=== PATIENT | male | born 1980 | race Hispanic/Latino ===

== ENCOUNTER 2020-03-19 18:04 | Emergency (ER) | payer OTHER, SELFPAY ==
[2020-03-19] VITALS (11 sets, daily range): BP systolic 147–178; BP diastolic 85–108; PULSE 58–75; RESP 15–28; TEMP 37.1; O2SAT 95–100
--- NOTE | ~2020-03-19 | XR_ITS ---
XR chest 2V DATE: 03/19/2020 18:26 INDICATION: Chest pain radiating to left arm. Shortness of breath for 5 days. TECHNIQUE: PA and lateral views COMPARISON: 02/07/2015 2 view chest 01/24/2015 CT pulmonary scan FINDINGS: Normal heart size. No hilar or mediastinal enlargement. No pulmonary infiltrate or consolidation, pleural effusion or pulmonary vascular congestion or pneumo thorax. Included skeletal structures are unremarkable. IMPRESSION: No active cardiopulmonary disease Reviewed, dictated and finalized at location A. SLUDGE KILN OPERATOR
--- NOTE | 2020-03-19 18:09 | ECG_ITS ---
Measurements Intervals [place] Rate: 76 P: 41 CO: 193 QRS: 40 QRSD: 105 T: 11 QT: 378 QTc: 425 Interpretive Statements SINUS RHYTHM MINIMAL Q WAVES- HIGH LATERAL LEADS BORDERLINE ST-T WAVE ABNORMALITY- INFERIOR LEADS BASELINE ARTIFACT- II, AVF BORDERLINE ECG Electronically Signed On 03-19-2020 18:49:28 KEY ACCOUNT EXECUTIVE by Arik Benavides D.O.
[2020-03-19 18:21] LABS: Basophils Percent Auto 0.4 % (0.2-1.2); Eosinophils Absolute Auto 0.3 K/mm3 (0-0.3); Eosinophils Percent Auto 3.8 % (0-4.4); Hematocrit 44.9 % (42.0-52.0); Hemoglobin 15.2 g/dL (14.0-18.0); Immature Granulocyte Absolute 0.02 K/mm3 (0.00-0.031); Immature Granulocyte Percent A 0.3 % (0-0.5); Lymphocytes Percent Auto 29.5 % (18.3-44.2); Mean Corpuscular HGB Conc 33.9 g/dl (32-36); Mean Corpuscular Hemoglobin 30.6 pg (26-34); Mean Corpuscular Volume 90.5 fl (80-100); Mean Platelet Volume 9.4 fl (7.4-10.4); Monocytes Absolute Auto 0.7 K/mm3 (0.1-0.6); Monocytes Percent Auto 8.3 % (2.6-8.5); Neutrophils Absolute Auto 4.5 K/mm3 (1.3-6.7); Neutrophils Percent Auto 57.7 % (45.5-73.1); Platelet Count Result 255 k/mm3 (150-375); Red Blood Count 4.96 M/mm3 (4.6-6.20); Red Cell Distribution Width 12.3 % (11.5-14.5); White Blood Count 7.8 K/mm3 (4.5-10.0)
[2020-03-19 18:32] LABS: Anion Gap 6 mmol/L (8-16); Blood Urea Nitrogen 14 mg/dL (9-20); Calcium 9.2 mg/dL (8.4-10.2); Carbon Dioxide 29 mmol/L (22-30); Chloride 100 mmol/L (98-107); Estimated CRCL calculation 136 ml/min; Estimated Glomerular Filt Rate > 60; Glucose 158 mg/dL (75-110); Potassium 3.8 mmol/L (3.4-5.0); Sodium 135 mmol/L (137-145)
[2020-03-19 18:36] LABS: Prothrombin Time 13.5 Seconds (11.1-14.7)
[2020-03-19 18:44] LABS: Troponin I < 0.012 ng/mL (0.000-0.034)
--- NOTE | 2020-03-19 20:14 | ED.GENADULT ---
HPI - General Adult General Chief complaint: Chest Pain Stated complaint: chest pain Time Seen by Provider: 03/19/20 18:09 History of Present Illness HPI narrative: Patient is a 39-year-old male who presents to the ER with some chest pain. Ongoing for a couple of weeks and was occurring occasionally. It has not occurred every day for the last 5 days. Symptoms always occur in the evening at night when he is sitting or laying down. Is typically after he has eaten. He gets some discomfort in the center of his chest that does not radiate to the shoulder or arm. He will then get a funny feeling within his throat. No nausea or vomiting. He says the pain will last for about an hour and will make him somewhat short of breath. No lower extremity swelling. He said no runny nose/sore throat/productive cough. No exertional dyspnea or chest pain. No family history of coronary disease. Patient has a PCP that he follows with. Related Data Allergies Allergy/AdvReac Type Severity Reaction Status Date / Time No Known Allergies Allergy Verified 02/22/15 13:51 Review of Systems Review of Systems: All systems reviewed & are unremarkable except as noted in HPI and below Constitutional: Constitutional: Denies chills, Denies fever(s) and Denies weakness ENT: Denies nasal congestion and Denies sore throat Cardiovascular: Cardiovascular: Reports chest pain, Denies rapid heart rate and Denies radiating jaw, neck or arm pain Respiratory: Respiratory: Denies cough, Reports dyspnea and Denies wheezing Gastrointestinal: Gastrointestinal: Denies abdominal pain, Denies heartburn, Denies nausea and Denies vomiting Musculoskeletal: Musculoskeletal: Denies muscle cramps PMFSH Past Medical History Medical History (Updated 03/19/20 @ 20:20 by Benny Jacobs MD) Healthy adult male Surgical History Surgical History (Updated 03/19/20 @ 20:17 by Benny Jacobs MD) No pertinent past surgical history Social History Social History (Updated 03/19/20 @ 20:17 by Benny Jacobs MD) Social History: Rare tobacco use Exam Narrative: Exam Narrative: GENERAL: Well-appearing, well-nourished, and in no acute distress. HEAD: Normocephalic, atraumatic. CHEST: Clear to auscultation. No respiratory distress. HEART: Regular rate and rhythm. No murmur heard. Normal peripheral pulses. ABDOMEN: Soft, nontender, nondistended. EXTREMITIES: Normal range of motion. No edema. SKIN: Warm, dry, no rash. NEURO: Alert and oriented x3. PSYCH: Normal mood and affect. Course Course Emergency Course: Symptoms seem most likely be related to reflux given the fact that only occurs in the evening when laying down. Will start on famotidine. Recommend that patient follow-up with PCP after his treatment to discuss whether he needs either a GI referral or a stress test. Patient verbalized understanding. Vital Signs Vital signs: Vital Signs Temperature 98.7 F 03/19/20 18:07 Pulse Rate 75 03/19/20 18:07 Respiratory Rate 20 03/19/20 18:07 Blood Pressure 178/108 H 03/19/20 18:07 Pulse Oximetry 99 03/19/20 18:07 Temperature 98.7 F 03/19/20 18:07 Pulse Rate 67 03/19/20 18:16 Respiratory Rate 19 03/19/20 18:16 Blood Pressure 157/100 H 03/19/20 18:16 Pulse Oximetry 98 03/19/20 18:16 Medical Decision Making Vital Signs Vital Signs: Vital Signs Temperature 98.7 F 03/19/20 18:07 Pulse Rate 75 03/19/20 18:07 Respiratory Rate 20 03/19/20 18:07 Blood Pressure 178/108 H 03/19/20 18:07 Pulse Oximetry 99 03/19/20 18:07 Temperature 98.7 F 03/19/20 18:07 Pulse Rate 67 03/19/20 18:16 Respiratory Rate 19 03/19/20 18:16 Blood Pressure 157/100 H 03/19/20 18:16 Pulse Oximetry 98 03/19/20 18:16 Lab Data Result diagrams: 03/19/20 18:12 03/19/20 18:12 Labs: Lab Results 03/19/20 03/19/20 03/19/20 Range/Units 18:12 18:12 18:12 WBC 7.8 (4.5-10.0) K/mm3
== END 2020-03-19 20:34 | disposition home or self-care (01) ==
PROVIDERS: Emergency Provider Emergency Medicine; Family Provider Internal Medicine; PCP Internal Medicine
DX: R07.89 Other chest pain (principal); K21.9 Gastro-esophageal reflux disease without esophagitis; R94.31 Abnormal electrocardiogram [ECG] [EKG]
CPT/HCPCS: 36415; 71046; 80048; 84484; 85025; 85610; 85730; 93005; 99284

== ENCOUNTER 2020-11-29 13:01 | Emergency (ER) | payer OTHER, SELFPAY ==
--- NOTE | ~2020-11-29 | XR_ITS ---
XR chest 1V portable DATE: 11/29/2020 13:32 INDICATION: Chest pain, left facial and arm numbness TECHNIQUE: Portable upright AP chest on 11/29/2020 at 1329 hours COMPARISON: 03/19/2020 PA and lateral chest FINDINGS: Cardiac and mediastinal silhouettes are unremarkable. No pulmonary infiltrate or consolidat ion, pleural effusion or pulmonary vascular congestion or pneumothorax. IMPRESSION: No active disease Reviewed, dictated and finalized at location A. IMPRESSION: No active disease
--- NOTE | 2020-11-29 13:08 | ECG_ITS ---
Measurements Intervals [place] Rate: 76 P: 26 TN: 180 QRS: 18 QRSD: 91 T: -16 QT: 390 QTc: 439 Interpretive Statements SINUS RHYTHM MINIMAL Q WAVES- HIGH LATERAL LEADS BORDERLINE ST-T WAVE ABNORMALITY- INFERIOR LEADS BORDERLINE ECG Electronically Signed On 11-29-2020 18:16:57 CDT by Arik Benavides D.O.
[2020-11-29] MEDS: SODIUM CHLORIDE 0.9% IV 1,000 ML 999 ML IV CONT (13:45)
[2020-11-29] MEDS: ONDANSETRON INJ 4 MG/2 ML VIAL IV PUSH (13:45)
[2020-11-29 13:46] LABS: Basophils Percent Auto 0.4 % (0.2-1.2); Eosinophils Absolute Auto 0.3 K/mm3 (0-0.3); Eosinophils Percent Auto 4.2 % (0-4.4); Hematocrit 43.5 % (42.0-52.0); Hemoglobin 14.4 g/dL (14.0-18.0); Immature Granulocyte Absolute 0.04 K/mm3 (0.00-0.031); Immature Granulocyte Percent A 0.6 % (0-0.5); Lymphocytes Absolute Auto 2.65 K/mm3 (0.9-3.2); Lymphocytes Percent Auto 37.4 % (18.3-44.2); Mean Corpuscular HGB Conc 33.1 g/dl (32-36); Mean Corpuscular Hemoglobin 30.9 pg (26-34); Mean Corpuscular Volume 93.3 fl (80-100); Mean Platelet Volume 9.3 fl (7.4-10.4); Monocytes Absolute Auto 0.6 K/mm3 (0.1-0.6); Monocytes Percent Auto 8.7 % (2.6-8.5); Neutrophils Absolute Auto 3.5 K/mm3 (1.3-6.7); Neutrophils Percent Auto 48.7 % (45.5-73.1); Platelet Count Result 262 k/mm3 (150-375); Red Blood Count 4.66 M/mm3 (4.6-6.20); Red Cell Distribution Width 13.1 % (11.5-14.5); White Blood Count 7.1 K/mm3 (4.5-10.0)
[2020-11-29] MEDS: FAMOTIDINE 20 MG/2 ML VIAL IV PUSH (13:46)
[2020-11-29 13:57] LABS: Alanine Aminotransferase 73 U/L (4-50); Albumin Level 4.9 g/dL (3.5-5.1); Alkaline Phosphatase 109 U/L (38-126); Anion Gap 10 mmol/L (8-16); Aspartate Amino Transferase 44 U/L (17-59); Bilirubin,Total 0.4 mg/dL (0.2-1.3); Blood Urea Nitrogen 13 mg/dL (9-20); Calcium 9.1 mg/dL (8.4-10.2); Carbon Dioxide 24 mmol/L (22-30); Chloride 105 mmol/L (98-107); Estimated CRCL calculation 140 ml/min; Estimated Glomerular Filt Rate > 60; Glucose 165 mg/dL (65-110); Lipase 101 U/L (23-300); Potassium 4.1 mmol/L (3.4-5.0); Sodium 139 mmol/L (137-145)
[2020-11-29 14:08] LABS: Troponin I < 0.012 ng/mL (0.000-0.034)
--- NOTE | 2020-11-29 14:53 | ED.CHESTPAIN ---
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 Patient then developed shortness of breath and numbness in LUE and LLE per patient,none now. states patient became very anxious and started breathing heavily. Chest pain worse with nothing, improved with nothing. No previous history of same. No fever, no cough, no vomiting, does have some nausea, no shortness of breath currently. No leg swelling, no recent travel or surgeries. No family history of CAD before age 509. Patient states no tobacco or cocaine use, no HTN, no DM and no elevated cholesterol. MD complaint: chest pain and chest discomfort Timing of current episode: constant Prior episodes: No Onset: after eating Pain radiation: none Quality: sharp Relieving factors: nothing Exacerbating factors: eating Associated symptoms: nausea, diaphoresis and palpitations Risk Factors Coronary artery disease risk factors: none Thoracic aortic dissection risk factors: none Related Data Allergies Allergy/AdvReac Type Severity Reaction Status Date / Time No Known Allergies Allergy Verified 11/29/20 13:53 Review of Systems Review of Systems: All systems reviewed & are unremarkable except as noted in HPI and below (HPI and below) Constitutional: Comments: no fever, no fatigue Neurologic: Denies confusion, Denies vertigo, Denies dizziness, Denies syncope, Denies headache(s), Reports numbness and Denies weakness Psychiatric: Psychiatric: Reports anxiety Comments: no SI/ no HI Allergic/Immunologic: Comments: no throat swelling, no rashes , PMFSH Past Medical History Medical History (Updated 11/30/20 @ 00:01 by Telma Batista) Healthy adult male Surgical History Surgical History (Updated 03/19/20 @ 20:17 by Benny Jacobs MD) No pertinent past surgical history Social History Social History (Updated 03/19/20 @ 20:17 by Benny Jacobs MD) Social History: Rare tobacco use Exam Const: Other: anxious, afebrile, answering all questions appropriately HENMT: Mouth: Yes moist mucous membranes Throat: posterior oropharynx normal and uvula midline Eyes: Conjunctivae: conjunctivae normal Pupils: Equal, round and reactive pupils present Neck: Neck: meningismus present and no lymphadenopathy noted Resp: Effort & Inspection: normal respiratory effort Auscultation: clear to auscultation bilaterally Cardio: Rate: regular rate Rhythm: regular rhythm Other: no lower extremity edema B GI: GI Palp: Yes Soft to palpation Other: epigastric tend, negative murphys no rebound no guarding Skin: General skin exam: normal color Rashes: no rashes Wounds: no wounds Neuro: General: patient oriented x3, no focal motor deficits and CN's II-XI intact bilaterally Extrem: General: no clubbing, cyanosis or edema Other: no deformity, moving all extremities equally Psych: Appearance: well kempt Affect: Anxious affect present Attitude: cooperative Thought content: Yes Normal thought content present MDM - Chest Pain MDM Narrative Medical decision making narrative: Patient with no significant cardiac risk factors, PERC negative for PE complains of sudden onset of chest pain while eating sausage sandwich. Patient also had tachypnea and LUE and LLE numbness now resolved, patient became anxious with heavy breathing at onset of symptoms per , no numbness or tachypnea currently, currently 67 bpm on monitor 100% RA, afebrile. On exam patient with epigastric tend, no other findigs. Patient given pepcid and zofran on arrival in ED. EKG without acute changes from Feb 2020;
== END 2020-11-29 15:05 | disposition home or self-care (01) ==
PROVIDERS: Emergency Provider Emergency Medicine; PCP Internal Medicine
DX: K21.9 Gastro-esophageal reflux disease without esophagitis (principal); R94.31 Abnormal electrocardiogram [ECG] [EKG]
CPT/HCPCS: 36415; 71045; 80053; 83690; 83735; 84484; 85025; 93005; 96361; 96374; 96375; 99284; J2405; J7030

== ENCOUNTER 2021-02-08 03:09 | Emergency (ER) | payer OTHER, SELFPAY ==
[2021-02-08] VITALS (17 sets, daily range): BP systolic 121–173; BP diastolic 69–105; PULSE 54–80; RESP 12–23; TEMP 36.6–36.9; O2SAT 95–100
--- NOTE | ~2021-02-08 | XR_ITS ---
EXAMINATION: XR chest 1V portable DATE: 02/08/2021 03:32 INDICATION: Midsternal chest pain. TECHNIQUE: A single frontal view of the chest was obtained. COMPARISON: Chest single view 11/29/2020, chest CT 01/28/2015 FINDINGS: There is no pneumonia, pleural effusion, or pneumothorax. Cardiomegaly is noted. IMPRESSION: 1. Cardiomegaly. Reviewed, dictated and finalized at location A. OGIST IMPRESSION: 1. Cardiomegaly.
--- NOTE | 2021-02-08 03:19 | ECG_ITS ---
Measurements Intervals [place] Rate: 70 P: 5 VT: 185 QRS: 27 QRSD: 106 T: 1 QT: 386 QTc: 419 Interpretive Statements SINUS RHYTHM MINIMAL Q WAVES- HIGH LATERAL LEADS BORDERLINE ST-T WAVE ABNORMALITY- INFERIOR LEADS BASELINE ARTIFACT- III, V3 BORDERLINE ECG Electronically Signed On 02-08-2021 6:23:42 GEAR CHANGER by Arik Benavides D.O.
[2021-02-08] MEDS: BELLADONNA ALK/PHENOB ELIX 10 ML, MAG HYDROX/ALUMINUM HYD/SIMETH 30 ML, LIDOCAINE HCL 2... PO (03:29)
[2021-02-08] MEDS: NITROGLYCERIN SL 0.4 MG TABLET SUBLINGUAL (03:30)
[2021-02-08 03:33] LABS: Basophils Absolute Auto 0.1 K/mm3 (0.0-0.1); Basophils Percent Auto 0.6 % (0.2-1.2); Eosinophils Absolute Auto 0.4 K/mm3 (0-0.3); Eosinophils Percent Auto 4.3 % (0-4.4); Hematocrit 40.9 % (42.0-52.0); Hemoglobin 13.5 g/dL (14.0-18.0); Immature Granulocyte Absolute 0.02 K/mm3 (0.00-0.031); Immature Granulocyte Percent A 0.2 % (0-0.5); Lymphocytes Absolute Auto 3.75 K/mm3 (0.9-3.2); Lymphocytes Percent Auto 42.8 % (18.3-44.2); Mean Corpuscular Hemoglobin 30.2 pg (26-34); Mean Corpuscular Volume 91.5 fl (80-100); Mean Platelet Volume 9.6 fl (7.4-10.4); Monocytes Absolute Auto 0.5 K/mm3 (0.1-0.6); Monocytes Percent Auto 5.4 % (2.6-8.5); Neutrophils Absolute Auto 4.1 K/mm3 (1.3-6.7); Neutrophils Percent Auto 46.7 % (45.5-73.1); Platelet Count Result 275 k/mm3 (150-375); Red Blood Count 4.47 M/mm3 (4.6-6.20); Red Cell Distribution Width 12.1 % (11.5-14.5); White Blood Count 8.8 K/mm3 (4.5-10.0)
--- NOTE | 2021-02-08 03:40 | PC.NURSE ---
After patient received first dose of SL nitro, patient stated he felt worse with the sob and the trouble swallowing. Patient refused any additional doses of nitro. ERP aware.
[2021-02-08 03:46] LABS: Alanine Aminotransferase 29 U/L (4-50); Albumin Level 4.9 g/dL (3.5-5.1); Alkaline Phosphatase 113 U/L (38-126); Anion Gap 11 mmol/L (8-16); Aspartate Amino Transferase 30 U/L (17-59); Bilirubin,Total 0.3 mg/dL (0.2-1.3); Blood Urea Nitrogen 18 mg/dL (9-20); Calcium 9.5 mg/dL (8.4-10.2); Carbon Dioxide 24 mmol/L (22-30); Chloride 100 mmol/L (98-107); Estimated CRCL calculation 128 ml/min; Estimated Glomerular Filt Rate > 60; Glucose 139 mg/dL (65-110); Lipase 150 U/L (23-300); Potassium 4.1 mmol/L (3.4-5.0); Sodium 135 mmol/L (137-145)
[2021-02-08 03:51] LABS: INR 0.9; Prothrombin Time 12.5 Seconds (11.1-14.7)
[2021-02-08 03:52] LABS: Partial Thromboplastin Time 34.1 SECONDS (22.3-36.8)
[2021-02-08 03:57] LABS: Troponin I < 0.012 ng/mL (0.000-0.034)
--- NOTE | 2021-02-08 04:07 | ED.GENADULT ---
HPI - General Adult General Chief complaint: Chest Pain Stated complaint: trouble breathing Time Seen by Provider: 02/08/21 03:22 History of Present Illness HPI narrative: Patient 40-year-old gentleman who presents the emergency department with chief complaint of chest discomfort. Patient states has been having a fullness after he eats for some time is supposed to see GI in the future and reports that this evening patient states he went to sleep this evening woke up a tightness and fullness in his chest. Patient states is not improved by anything or is worsened by anything patient's report that he feels as though his throat was tight with this Related Data Home Medications Medication Instructions Recorded Confirmed atorvastatin 02/08/21 blood sugar diagnostic [Accu-Chek 02/08/21 02/08/21 Guide test strips] esomeprazole magnesium mg 02/08/21 famotidine 02/08/21 lancets [Accu-Chek Softclix 02/08/21 02/08/21 Lancets] metformin mg PO 02/08/21 Allergies Allergy/AdvReac Type Severity Reaction Status Date / Time No Known Allergies Allergy Verified 02/08/21 03:20 Review of Systems Review of Systems: A 10 system review of systems was completed on the patient and is negative except for what is stated in the HPI. Nursing and ancillary documentation was reviewed. [facility] Past Medical History Medical History Healthy adult male Surgical History Surgical History No pertinent past surgical history Social History Social History Social History: Rare tobacco use Exam Narrative: GENERAL: Well-appearing, well-nourished, and in no acute distress. HEAD: Normocephalic, atraumatic. EYES: PERRLA and EOMI. ENT: Nares clear, no rhinorrhea or epistaxis. Mucous membranes moist. NECK: Supple. CHEST: Clear to auscultation. No respiratory distress. HEART: Regular rate and rhythm. No murmur heard. Normal peripheral pulses. ABDOMEN: Soft, nontender, nondistended, normal active bowel sounds. EXTREMITIES: Normal range of motion. No edema. SKIN: Warm, dry, no rash. NEURO: No focal deficits. Alert and oriented x3. PSYCH: Normal mood and affect. Course Course Emergency Course: EKG is sinus rhythm rate of [address] elevation or ST depression Chest x-ray shows no focal infiltrate Troponins are negative x2 sets Patient is feeling much better after the GI cocktail Vital Signs Vital signs: Vital Signs Pulse Rate 80 02/08/21 03:14 Respiratory Rate 23 H 02/08/21 03:14 Pulse Oximetry 99 02/08/21 03:14 Temperature 36.9 C 02/08/21 03:15 Pulse Rate 62 02/08/21 04:46 Respiratory Rate 16 02/08/21 04:46 Blood Pressure 126/87 02/08/21 04:46 Pulse Oximetry 97 02/08/21 04:46 Medical Decision Making Vital Signs Vital Signs: Vital Signs Pulse Rate 80 02/08/21 03:14 Respiratory Rate 23 H 02/08/21 03:14 Pulse Oximetry 99 02/08/21 03:14 Temperature 36.9 C 02/08/21 03:15 Pulse Rate 62 02/08/21 04:46 Respiratory Rate 16 02/08/21 04:46 Blood Pressure 126/87 02/08/21 04:46 Pulse Oximetry 97 02/08/21 04:46 Lab Data Result diagrams: 02/08/21 03:26 02/08/21 03:26 Labs: Lab Results 02/08/21 02/08/21 02/08/21 Range/Units 03:26 03:26 03:26 WBC 8.8 (4.5-10.0) K/mm3 RBC 4.47 L (4.6-6.20) M/mm3 Hgb 13.5 L (14.0-18.0) g/dL Hct 40.9 L (42.0-52.0) % MCV 91.5 (80-100) fl MCH 30.2 (26-34) pg MCHC 33.0 (32-36) g/dl RDW 12.1 (11.5-14.5) % Plt Count 275 (150-375) k/mm3 MPV 9.6 (7.4-10.4) fl Immature Gran % (Auto) 0.2 (0-0.5) % Neut % (Auto) 46.7 (45.5-73.1) % Lymph % (Auto) 42.8 (18.3-44.2) % Scott % (Auto) 5.4 (2.6-8.5) % Eos % (Auto) 4.3 (0-4.4) % Baso % (Auto) 0.6 (0.2-1
[2021-02-08 04:34] LABS: Add Urine Microscopic? NO; Appearance Urine Clear (Clear); Bilirubin Urine Negative (Negative); Blood Urine Negative (Negative); Color Urine Straw (Yellow); Glucose Urine UA Negative (Negative); Ketones Urine Negative (Negative); Leukocyte Esterase Ur Negative LEU/UL (Negative); Nitrate Urine Negative (Negative); Protein Urine Negative (Negative); Specific Grav Ur 1.011 (1.001-1.035); Urobilinogen Urine Negative mg/dL (<2.0)
--- NOTE | 2021-02-08 05:00 | PC.NURSE ---
Patient states he feels much better, that the GI cocktail helped the most. Patient VS improved and bp within normal. ERP notified. Patient offers no complaints at this time. Patient resting on stretcher with at bedside. Call light in reach.
[2021-02-08 06:24] LABS: Troponin I < 0.012 ng/mL (0.000-0.034)
== END 2021-02-08 06:49 | disposition home or self-care (01) ==
PROVIDERS: Emergency Provider Emergency Medicine; PCP Internal Medicine
DX: R07.89 Other chest pain (principal); K21.9 Gastro-esophageal reflux disease without esophagitis; R94.31 Abnormal electrocardiogram [ECG] [EKG]
CPT/HCPCS: 36415; 71045; 80053; 81003; 83690; 84484; 85025; 85610; 85730; 93005; 99284; A9270

== ENCOUNTER 2021-02-26 02:45 | Day surgery (SDC) | payer OTHER, SELFPAY ==
[2021-02-10 13:55] VITALS: BMI 37.8
--- NOTE | 2021-02-26 07:59 | P.PNAN_ITS ---
Anes - Initial Pre Proc Eval Procedure: Operation Date: 02/26/21 11:30 Proposed Procedures p Esophagogastroduodenoscopy - Jamie Lopes MD Date/Time: 02/26/21 07:59 Surgeon: Jamie Lopes MD Pre Op Diagnosis: GERD Patient Data Age: 40 Gender: M Height: 1.8 m Weight: 122.8 kg Allergies Allergy/AdvReac Type Severity Reaction Status Date / Time No Known Allergies Allergy Verified 02/26/21 10:44 Home Medications Medication Instructions Recorded Confirmed Type atorvastatin 20 mg PO DAILY 02/08/21 02/26/21 History blood sugar diagnostic [Accu-Chek 02/08/21 02/26/21 History Guide test strips] famotidine 20 mg PO DAILY 02/08/21 02/26/21 History lancets [Accu-Chek Softclix 02/08/21 02/26/21 History Lancets] metformin 500 mg PO DAILY 02/08/21 02/26/21 History sucralfate [Carafate] 1 g PO QID 10 Days #40 tablet 02/08/21 02/26/21 Rx Patient hx anesthesia problems: none Family hx anesthesia problems: none Results Review: All pre-operative results and documents have been reviewed as part of the pre-operative evaluation. [facility] Past Medical History Medical History (Updated 02/26/21 @ 11:14 by Jamie Lopes MD) Hyperlipidemia Surgical History Surgical History No pertinent past surgical history Social History Social History Social History: Rare tobacco use Smoking status: Never smoker Alcohol intake: former Alcohol use details: former social drinker, no alcohol use now Substance use: never Substance use type: does not use Living arrangements: with family Spiritual care concerns: No Anes - Eval Final PreProcedure Day of Procedure 02/26/21 07:59 Patient weight: obese Heart: regular rate and rhythm Lungs: clear to auscultation and normal air movement Airway: Mallampati scale class II Neurological: alert and oriented Last oral intake: >/= 8 hours ASA classification: II Emergent: no Anesthetic plan: proceed Anesthesia type and monitoring: general GIVS and standard monitoring Results Review: All pre-operative results and documents have been reviewed as part of the pre-operative evaluation. Informed Consent: The patient's anesthetic plan and its attendant risks and benefits were discussed with the patient/family/POA. Questions were solicited and answers provided to the satisfaction of the patient/family/POA.
[2021-02-26 10:46] VITALS: BP 143/84; PULSE 54; RESP 17; TEMP 37; O2SAT 99; BMI 37.5
[2021-02-26] MEDS: LACTATED RINGERS 1,000 ML 150 ML IV CONT (10:50)
[2021-02-26 10:51] LABS: Glucose Point of Care 91 mg/dl (65-105)
--- NOTE | 2021-02-26 11:12 | WPDGICN ---
Assessment and Plan Assessment and plan (1) Odynophagia: Code(s): R13.10 - Dysphagia, unspecified Status: Acute Assessment and Plan: Patient has painful swallowing. Etiology unclear. Differential diagnosis does include acid reflux but also includes possible pill esophagitis or infectious esophagitis. Plan is to evaluate more thoroughly with an EGD. Further recommendations will be given after endoscopy. GI Consult Note Consult date/time: 02/26/21 11:12 HPI: Rufino Garibay is a 40 year old male Presents for EGD. Patient is Nepalese-speaking. Accompanied by his who acts as an hourly sign language interpreter. Patient reports that he has had painful swallowing since November of 2020. Almost all foods will cause him to have substernal burning pain. This happens daily. Also sometimes will subside to a certain degree. He notices no hindrance to swallowing. He has no heartburn. He has no abdominal pain. He has had no bleeding nor weight loss. There was no particular incident the precipitated this pain. Patient had initially was treated with omeprazole with no change in symptoms. He has had some improvement on taking sucralfate. Patient's family history is noncontributory. His pain appears to be ongoing. Current medications include Carafate and famotidine. Review of Systems Review of Systems: All systems reviewed & are unremarkable except as noted in HPI and below PMFSH Past Medical History Medical History (Updated 02/26/21 @ 11:14 by Jamie Lopes MD) Hyperlipidemia Surgical History Surgical History No pertinent past surgical history Social History Social History Social History: Rare tobacco use Smoking status: Never smoker Alcohol intake: former Alcohol use details: former social drinker, no alcohol use now Substance use: never Substance use type: does not use Living arrangements: with family Spiritual care concerns: No Meds Home Medications and Allergies Home Medications Medication Instructions Recorded Confirmed Type atorvastatin 20 mg PO DAILY 02/08/21 02/26/21 History blood sugar diagnostic [Accu-Chek 02/08/21 02/26/21 History Guide test strips] famotidine 20 mg PO DAILY 02/08/21 02/26/21 History lancets [Accu-Chek Softclix 02/08/21 02/26/21 History Lancets] metformin 500 mg PO DAILY 02/08/21 02/26/21 History sucralfate [Carafate] 1 g PO QID 10 Days #40 tablet 02/08/21 02/26/21 Rx Allergies Allergy/AdvReac Type Severity Reaction Status Date / Time No Known Allergies Allergy Verified 02/26/21 10:44 Vital Signs Vital Signs - 24 hr 02/26/21 10:46 Temperature 98.6 F Pulse Rate 54 L Respiratory Rate 17 Blood Pressure 143/84 H Pulse Oximetry 99 Exam Narrative: Physical exam reveals patient to be alert. Vital signs stable. HEENT exam is unremarkable. Patient is anicteric. Lungs are clear to auscultation and percussion. Heart is without murmur or extra sounds. Abdominal exam bowel sounds are present soft nontender with no organomegaly. Digital external rectal exam is normal.
[2021-02-26] MEDS: BENZOCAINE (*SP) 60 ML SPRAY CAN (HURRICAINE) 1 SPRAY MUCOUS MEM (11:24)
[2021-02-26 11:38] VITALS: BP 105/60; PULSE 60; RESP 21; O2SAT 94
[2021-02-26 11:48] VITALS: BP 99/60; PULSE 59; RESP 19; O2SAT 94
[2021-02-26 11:58] VITALS: BP 99/60; PULSE 54; RESP 27; O2SAT 97
== END 2021-02-26 12:15 | disposition home or self-care (01) ==
PROVIDERS: PCP Internal Medicine; Visit Provider Internal Medicine Gastroenterology
PROC: 0DJ08ZZ Inspection of Upper Intestinal Tract, Via Natural or Artificial Opening Endoscopic (ICD-10-PCS; CPT 43235; principal; 2021-02-26 11:30)
DX: R13.10 Dysphagia, unspecified (principal); K20.80 Other esophagitis without bleeding; E78.5 Hyperlipidemia, unspecified; E66.9 Obesity, unspecified; Z68.37 Body mass index [BMI] 37.0-37.9, adult
CPT/HCPCS: 43239; 82948; 87081; 88305; J2704; J7120

== ENCOUNTER 2022-04-07 17:42 | Emergency (ER) | payer OTHER, SELFPAY ==
[2022-04-07 18:05] VITALS: BP 135/82; PULSE 65; RESP 14; TEMP 36.8; O2SAT 98
--- NOTE | 2022-04-07 18:41 | ED.URI ---
HPI - URI/Sore Throat General Chief Complaint: Upper Respiratory Infection Stated Complaint: SORE THROAT Time Seen by Provider: 04/07/22 18:41 Source: patient Mode of arrival: ambulatory Limitations: no limitations History of Present Illness HPI Narrative: 41-year-old male presents with complaint of fatigue, cough, congestion, body aches, chills, headache. Symptoms for 2 days. Afebrile. Taking [id number] medications to treat his symptoms. patient wanted tested for COVID for work. No chest pain or shortness of breath. All systems reviewed and negative except as noted above. Related Data Home Medications Medication Instructions Recorded Confirmed atorvastatin 20 mg tablet 20 mg PO DAILY 02/08/21 04/07/22 blood sugar diagnostic (Accu-Chek 02/08/21 04/07/22 Guide test strips) lancets (Accu-Chek Softclix 02/08/21 04/07/22 Lancets) metformin 500 mg tablet,extended 500 mg PO DAILY 02/08/21 04/07/22 release 24 hr Allergies Allergy/AdvReac Type Severity Reaction Status Date / Time No Known Allergies Allergy Verified 04/07/22 17:50 Review of Systems Review of Systems: CONSTITUTIONAL: Denies fever . Reports chills, or sweats. EYES: Denies visual changes, redness, or discharge. ENT: reports rhinorrhea, congestion, sore throat. Denies otalgia. CARDIOVASCULAR: Denies chest pain, palpitations, or edema. RESPIRATORY: reports cough. Denies dyspnea. GASTROINTESTINAL: Denies abdominal pain, nausea, vomiting, or diarrhea. GENITOURINARY: Denies dysuria or hematuria. SKIN: Denies rash or itching. MUSCULOSKELETAL: Denies back pain, joint pain, or myalgia. NEUROLOGIC: Denies headache, numbness, or weakness. PSYCHIATRIC: Denies anxiety or depression. All other systems reviewed are negative, except as documented in HPI. [facility] Past Medical History Medical History Hyperlipidemia Surgical History Surgical History No pertinent past surgical history Social History Social History Social History: Rare tobacco use Smoking status: Never smoker Alcohol intake: former Alcohol use details: former social drinker, no alcohol use now Substance use: never Substance use type: does not use Living arrangements: with family Spiritual care concerns: No Comments At time of signature, agree with nursing past medical, surgical, social and family history. There is no relevant family history pertinent to the presenting complaint. Exam Narrative: GENERAL: This is a well-nourished, well-developed patient, in no apparent distress. HEAD: normocephalic, atraumatic. EYES: PERRL. Sclera clear/white. Vision is grossly intact. EARS: External ears normal, auditory canals clear and without drainage, TMs normal without perforation. Hearing grossly intact. NOSE: External nose normal with clear nasal drainage. THROAT: Mucous membranes moist, Mild erythema posterior pharynx. NECK: Neck supple, non-tender without lymphadenopathy, masses or thyromegaly. CARDIOVASCULAR: Regular rate and rhythm without murmurs, gallops, or rubs. RESPIRATORY: Clear to auscultation. Breath sounds equal bilaterally. No wheezes, rales, or rhonchi. SKIN: warm, Dry, intact with no suspicious lesions or rash, good texture and turgor. NEURO: awake, alert, and oriented to person, place and time. There were no obvious focal neurologic abnormalities. EXTREMITIES: No joint tenderness, effusion, or edema noted. Course Course Level of Care: Express Care Visit Vital Signs Vital signs: Vital Signs Temperature 36.8 C 04/07/22 18:05 Pulse Rate 65 04/07/22 18:05 Respiratory Rate 14 04/07/22 18:05 Blood Pressure 135/82 04/07/22 18:05 Pulse Oximetry 98 04/07/22 18:05 Temperature 36.8 C 04/07/22 18:05 Pulse Rate 65 04/07/22 18:05 Respiratory
== END 2022-04-07 19:10 | disposition home or self-care (01) ==
PROVIDERS: Emergency Provider Nurse Practitioner Family
DX: J06.9 Acute upper respiratory infection, unspecified (principal); Z20.822 Contact with and (suspected) exposure to COVID-19; E78.5 Hyperlipidemia, unspecified
CPT/HCPCS: 87426; 87804; 99213; C9803; G0463

== ENCOUNTER 2023-01-01 09:53 | Emergency (ER) | payer OTHER, SELFPAY ==
[2023-01-01 10:09] VITALS: BP 145/82; PULSE 68; RESP 18; TEMP 37.2; O2SAT 98
--- NOTE | 2023-01-01 10:33 | ED.GENADULT ---
HPI - General Adult General Chief complaint: Upper Respiratory Infection Stated complaint: Bodyaches/Sore Throat Source: patient and family Mode of arrival: ambulatory Limitations: no limitations History of Present Illness HPI narrative: patient presents for evaluation of sick symptoms for the past two days. Symptoms include sore throat, fever and body aches. No recent sick contacts to his knowledge. He does not smoke. He has been taking motrin for his symptoms. He does not like taking tylenol. Related Data Home Medications Medication Instructions Recorded Confirmed atorvastatin 20 mg tablet 20 mg PO DAILY 02/08/21 01/01/23 blood sugar diagnostic (Accu-Chek 02/08/21 01/01/23 Guide test strips) lancets (Accu-Chek Softclix 02/08/21 01/01/23 Lancets) metformin 500 mg tablet,extended 500 mg PO DAILY 02/08/21 01/01/23 release 24 hr omeprazole 40 mg capsule,delayed mg 01/01/23 release Allergies Allergy/AdvReac Type Severity Reaction Status Date / Time No Known Allergies Allergy Verified 01/01/23 10:05 Review of Systems Review of Systems: CONSTITUTIONAL:Reports fever. Denies chills, or sweats. EYES: Denies visual changes, redness, or discharge. ENT: Reports sore throat. Denies rhinorrhea, congestion, or otalgia. CARDIOVASCULAR: Denies chest pain, palpitations, or edema. RESPIRATORY: Denies cough or dyspnea. GASTROINTESTINAL: Denies abdominal pain, nausea, vomiting, or diarrhea. GENITOURINARY: Denies dysuria or hematuria. SKIN: Denies rash or itching. MUSCULOSKELETAL: Reports generalized body aches. NEUROLOGIC: Denies headache, numbness, dizziness, or weakness. PSYCHIATRIC: Denies anxiety or depression. [facility] Past Medical History Medical History Hyperlipidemia Surgical History Surgical History No pertinent past surgical history Family History Family History Mother Family history non-contributory Social History Social History Smoking status: Never smoker Alcohol intake: former Alcohol use details: former social drinker, no alcohol use now Substance use: never Substance use type: does not use Living arrangements: with family Gender identity (if verbalized by the patient): Male Spiritual care concerns: No Exam Narrative: GENERAL: Well-appearing, well-nourished, and in no acute distress. HEAD: Normocephalic, atraumatic. EYES: PERRLA and EOMI. ENT: Nares clear, no rhinorrhea or epistaxis. Mucous membranes moist. Oropharynx without tonsillar hypertrophy exudate or other lesions. Bilateral TMs pearly la nonbulging NECK: Supple. No adenopathy or masses. No carotid bruits or JVD CHEST: Clear to auscultation. No respiratory distress. No wheezes rales or rhonchi HEART: Regular rate and rhythm. No murmur heard. Normal peripheral pulses. ABDOMEN: Soft, nontender, nondistended, normal active bowel sounds. EXTREMITIES: Normal range of motion. No edema. SKIN: Warm, dry, no rash. NEURO: No focal deficits. Alert and oriented x3. PSYCH: Normal mood and affect. Course Course Emergency Course: This is a 42 year old male who presented for fever, sore throat and body aches. Strep, influenza and COVID negative. OTC agents for symptom management. He would like to be treated empirically for strep in event his test was a false negative. Follow up with primary provider. Go to the ER for worsening symptoms. Pt in agreement with plan of care. Level of Care: Express Care Visit Vital Signs Vital signs: Vital Signs Temperature 37.2 C 01/01/23 10:09 Pulse Rate 68 01/01/23 10:09 Respiratory Rate 18 01/01/23 10:09 Blood Pressure 145/82 H 01/01/23 10:09 Pulse Oximetry 98 01/01/23 10:09 Oxygen Delivery Room Air 1
== END 2023-01-01 10:36 | disposition home or self-care (01) ==
PROVIDERS: Emergency Provider Nurse Practitioner; PCP Family Medicine
DX: J02.9 Acute pharyngitis, unspecified (principal); Z20.822 Contact with and (suspected) exposure to COVID-19; E78.5 Hyperlipidemia, unspecified
CPT/HCPCS: 87081; 87426; 87804; 87880; 99213; C9803; G0463

== ENCOUNTER 2023-02-23 18:52 | Emergency (ER) | payer OTHER, SELFPAY ==
[2023-02-23 19:09] VITALS: BP 160/96; PULSE 60; RESP 16; TEMP 37.3; O2SAT 96
--- NOTE | 2023-02-23 19:36 | ED.URI ---
HPI - URI/Sore Throat General Chief Complaint: Upper Respiratory Infection Stated Complaint: wheezing both ears blocked ,cough Time Seen by Provider: 02/23/23 19:36 Source: patient Mode of arrival: ambulatory Limitations: no limitations History of Present Illness HPI Narrative: 42-year-old male presents with complaint of cough, chest congestion, bilateral ears clogged, low-grade fever, chills and body aches for 5 days. Afebrile at [facility]. Not taking any [id number] medications to treat his symptoms. states she heard patient wheezing in sleep. No history of asthma. Patient denies chest pain and shortness of breath. All systems reviewed and negative except as noted above. Related Data Home Medications Medication Instructions Recorded Confirmed atorvastatin 20 mg tablet 20 mg PO DAILY 02/08/21 02/23/23 blood sugar diagnostic (Accu-Chek 02/08/21 01/01/23 Guide test strips) lancets (Accu-Chek Softclix 02/08/21 01/01/23 Lancets) metformin 500 mg tablet,extended 500 mg PO DAILY 02/08/21 02/23/23 release 24 hr omeprazole 40 mg capsule,delayed 40 mg PO DAILY 01/01/23 02/23/23 release Allergies Allergy/AdvReac Type Severity Reaction Status Date / Time No Known Allergies Allergy Verified 02/23/23 19:06 Review of Systems Review of Systems: CONSTITUTIONAL: reports fever, chills, or sweats. EYES: Denies visual changes, redness, or discharge. ENT: reports rhinorrhea, congestion. Denies sore throat, or otalgia. CARDIOVASCULAR: Denies chest pain, palpitations, or edema. RESPIRATORY: Reports cough. Denies dyspnea. GASTROINTESTINAL: Denies abdominal pain, nausea, vomiting, or diarrhea. GENITOURINARY: Denies dysuria or hematuria. SKIN: Denies rash or itching. MUSCULOSKELETAL: Denies back pain, joint pain, or myalgia. NEUROLOGIC: Denies headache, numbness, or weakness. PSYCHIATRIC: Denies anxiety or depression. All other systems reviewed are negative, except as documented in HPI. [facility] Past Medical History Medical History Hyperlipidemia Surgical History Surgical History No pertinent past surgical history Family History Family History Mother Family history non-contributory Social History Social History Smoking status: Never smoker Alcohol intake: former Alcohol use details: former social drinker, no alcohol use now Substance use: never Substance use type: does not use Living arrangements: with family Gender identity (if verbalized by the patient): Male Spiritual care concerns: No Comments At time of signature, agree with nursing past medical, surgical, social and family history. There is no relevant family history pertinent to the presenting complaint. Exam Narrative: GENERAL: This is a well-nourished, well-developed patient, in no apparent distress. HEAD: normocephalic, atraumatic. EYES: PERRL. Sclera clear/white. Vision is grossly intact. EARS: External ears normal, auditory canals clear and without drainage, TMs normal without perforation. Hearing grossly intact. NOSE: External nose normal with moderate congestion, clear nasal drainage. THROAT: Mucous membranes moist, Erythema postnasal drainage. NECK: Neck supple, non-tender without lymphadenopathy, masses or thyromegaly. CARDIOVASCULAR: Regular rate and rhythm without murmurs, gallops, or rubs. RESPIRATORY: Decreased throughout all lung valdivia but could be due to patient's body habitus. Breath sounds equal bilaterally. No wheezes, rales, or rhonchi. SKIN: warm, Dry, intact with no suspicious lesions or rash, good texture and turgor. NEURO: awake, alert, and oriented to person, place and time. There were no obvious focal neurologic abnormalities. EXTREMI
== END 2023-02-23 20:11 | disposition home or self-care (01) ==
PROVIDERS: Emergency Provider Nurse Practitioner Family; PCP Family Medicine
DX: J06.9 Acute upper respiratory infection, unspecified (principal); Z20.822 Contact with and (suspected) exposure to COVID-19; R03.0 Elevated blood-pressure reading, without diagnosis of hypertension; E78.5 Hyperlipidemia, unspecified
CPT/HCPCS: 87426; 87804; 99213; C9803; G0463

== ENCOUNTER 2023-03-28 22:18 | Observation (INO) | payer OTHER, SELFPAY ==
--- NOTE | ~2023-03-28 | CT_ITS ---
Clinical Indication: Chest pain CT Scan of the Chest with Contrast: Technique: Contiguous sections were acquired throughout the chest after intravenous administration of 200 cc of Omnipaque 350. Dose reduction technique was used on this scan by utilizing automated expos ure control and iterative reconstruction technique. The dose-length product (DLP) was 1138.25 mGy-cm. Findings: There is no evidence of any significant mediastinal, hilar or axillary lymphadenopathy. There is no f illing defect in the pulmonary arterial tree to suggest pulmonary embolus. There is no evidence of ao rtic dissection or aneurysm. There is no evidence of pleural or pericardial effusion. The lungs are clear, aside from calcified left upper lobe granuloma. Images through the upper abdomen reveal probable diffuse fatty infiltration of liver. Impression: No evidence of pulmonary embolus, aortic dissection, or aortic aneurysm. Clear lungs. Reviewed, dictated and finalized at [facility]. E WATER OR WATER PLANT OPERATOR Impression: No evidence of pulmonary embolus, aortic dissection, or aortic aneurysm. Clear lungs.
--- NOTE | ~2023-03-28 | XR_ITS ---
EXAMINATION: XR chest 2V Exam Date/Time: 03/28/2023 22:45 STUDIO OPERATIONS MANAGER HISTORY: CHEST PAIN X 1 DAY Comparison: 02/08/2021. RESULT: Lines, tubes, and devices: None. Lungs and pleura: Clear. Cardiomediastinal silhouette: Stable. Other: No acute osseous or upper abdominal finding. IMPRESSION: No acute cardiopulmonary process. Reviewed, dictated and finalized at location K. IO OPERATIONS MANAGER
--- NOTE | ~2023-03-28 | CT_ITS ---
CT ANGIOGRAM NECK AND HEAD History: Lower extremity numbness. Technique: Axial noncontrast imaging of the brain was performed. Serial spiral axial images through t he head and neck were then obtained during arterial phase IV injection of 200 cc of Omnipaque 350. 3- D postprocessing and MIP images were then reconstructed on the remote workstation. Dose reduction isabel hnique was used on this scan by utilizing automated exposure control and iterative reconstruction isabel hnique. The dose-length product (DLP) was 1919.09 mGy-cm. CTA neck findings: Bilateral vertebral arteries are patent. Bilateral common carotid, internal carot id, external carotid arteries are patent. No large vessel occlusion. No stenosis or aneurysm. The pro ximal right internal carotid artery demonstrates 0% stenosis relative to the normal distal artery lum en diameter. The proximal left internal carotid artery demonstrates 0% stenosis relative to the yolanda l distal artery lumen diameter. CTA head findings: Distal vertebral arteries, basilar artery, posterior cerebral arteries are patent. Distal internal carotid arteries, middle cerebral arteries, and anterior cerebral arteries are paten t. No large vessel occlusion. No stenosis or aneurysm. Axial noncontrast imaging of the brain is unremarkable. No acute infarct, intracranial hemorrhage, or mass lesion. Christiansen-white differentiation preserved. No mass effect or midline shift. Ventricles and s ubarachnoid spaces are unremarkable. Paranasal sinuses and mastoid air cells are clear. Impression: Unremarkable exam. Reviewed, dictated and finalized at location . ING RESIDENT Impression: Unremarkable exam.
--- NOTE | ~2023-03-28 | MR_ITS ---
MRI of the brain Clinical History: TIA Technique: Axial and sagittal T1-weighted images were acquired. These were followed by axial T2-weigh tomeka, diffusion weighted, gradient, and FLAIR images. Following intravenous administration of 20 cc Mu ltiHance gadolinium, T1-weighted fat-sat imaging was performed in the axial and coronal planes. Findings: There is no abnormal signal in the brain parenchyma. No acute infarct, intracranial hemorrh age, or mass lesion. Ventricles and subarachnoid spaces are unremarkable. Orbits are unremarkable. There is mild bilateral maxillary sinus disease. Remaining paranasal sinuses and mastoid air cells are clear. Major intracra nial flow voids are intact. Sagittal midline structures are intact. No abnormal postcontrast identified. IMPRESSION: No significant abnormality seen. Reviewed, dictated and finalized at [facility]. R RESOURCES PROGRAM DIRECTOR
--- NOTE | 2023-03-28 22:20 | ECG_ITS ---
Measurements Intervals [place] Rate: 64 P: 54 WA: 195 QRS: 22 QRSD: 106 T: 10 QT: 396 QTc: 409 Interpretive Statements SINUS RHYTHM COMPARED TO ECG 11/29/2020 13:22:42 NO SIGNIFICANT CHANGES Electronically Signed On 03-29-2023 15:10:49 BOARDING HOUSE MANAGER by Sheela Perez M.D.
[2023-03-28 22:49] VITALS: BP 154/95; PULSE 65; RESP 16; TEMP 36.5; O2SAT 99
[2023-03-28 23:24] LABS: Basophils Percent Auto 0.4 % (0.2-1.2); Eosinophils Absolute Auto 0.2 K/mm3 (0-0.3); Eosinophils Percent Auto 3.2 % (0-4.4); Hematocrit 40.7 % (42.0-52.0); Hemoglobin 13.1 g/dL (14.0-18.0); Immature Granulocyte Absolute 0.03 K/mm3 (0.00-0.031); Immature Granulocyte Percent A 0.4 % (0-0.5); Lymphocytes Absolute Auto 2.33 K/mm3 (0.9-3.2); Lymphocytes Percent Auto 30.7 % (18.3-44.2); Mean Corpuscular HGB Conc 32.2 g/dl (32-36); Mean Corpuscular Hemoglobin 28.6 pg (26-34); Mean Corpuscular Volume 88.9 fl (80-100); Mean Platelet Volume 9.6 fl (7.4-10.4); Monocytes Absolute Auto 0.6 K/mm3 (0.1-0.6); Monocytes Percent Auto 7.4 % (2.6-8.5); Neutrophils Absolute Auto 4.4 K/mm3 (1.3-6.7); Neutrophils Percent Auto 57.9 % (45.5-73.1); Platelet Count Result 304 k/mm3 (150-375); Red Blood Count 4.58 M/mm3 (4.6-6.20); Red Cell Distribution Width 12.7 % (11.5-14.5); White Blood Count 7.6 K/mm3 (4.5-10.0)
[2023-03-28 23:34] LABS: Alanine Aminotransferase 47 U/L (6-50); Albumin Level 4.5 g/dL (3.5-5.1); Alkaline Phosphatase 105 U/L (38-126); Anion Gap 7 mmol/L (8-16); Aspartate Amino Transferase 38 U/L (17-59); Bilirubin,Total 0.4 mg/dL (0.2-1.3); Blood Urea Nitrogen 13 mg/dL (9-20); Calcium 9.3 mg/dL (8.4-10.2); Carbon Dioxide 27 mmol/L (22-30); Chloride 103 mmol/L (98-107); Estimated CRCL calculation 148 ml/min; Estimated Glomerular Filt Rate > 60; Glucose 131 mg/dL (65-110); Lipase 173 U/L (23-300); Potassium 3.9 mmol/L (3.4-5.0); Prothrombin Time 13.6 Seconds (11.1-14.7); Sodium 137 mmol/L (137-145)
[2023-03-28 23:35] LABS: Partial Thromboplastin Time 38.2 SECONDS (22.3-36.8)
[2023-03-28 23:45] LABS: Troponin I < 0.012 ng/mL (0.000-0.034)
[2023-03-29] VITALS (15 sets, daily range): BP systolic 127–159; BP diastolic 74–102; PULSE 51–71; RESP 18–24; TEMP 36.1–36.5; O2SAT 16–100; BMI 43.1
--- NOTE | 2023-03-29 | EST_ITS ---
Patient Info Name: Rufino Garibay Age: 42 years : 1980 Gender: Male Ht: 71 in Wt: 309 lbs BSA: 2.71 m2 HR: 59 bpm BP: 147 / 98 mmHg Exam Date: 03/29/2023 11:27 AM Exam Location: Echo Lab Patient Status: Inpatient Admit Date: 03/29/2023 Staff Ordering Physician: Blaze García MD Attending Provider: Miriam Garcia MD Exercise Technologist: Katherine May [facility] Exercise Physician: Arik Benavides DO Exam Type: CA stress test treadmill Study Info A treadmill exercise stress test was performed. Summary 1. 1. Negative David exercise stress test for ischemic ST changes by ECG criteria. 2. 2. Good functional capacity, achieving 11 METs of workload. 3. 3. Baseline hypertension with hypertensive response to exercise. 4. 4. Appropriate HR response to exercise. 5. 5. Appropriate HR recovery at 1 minute post exercise. 6. 6. No imaging with stress testing. 7. 7. Patient informed of the above results. Protocol: David Stress ECG Details Stage: REST Duration (min): 1 min : 23 sec Speed (mph): 0.0 Grade (%): 0 HR (bpm): 59 SBP (mmHg): 147 DBP (mmHg): 98 METS: --- Stage: REST Duration (min): 6 min : 8 sec Speed (mph): 0.0 Grade (%): 0 HR (bpm): 62 SBP (mmHg): 147 DBP (mmHg): 98 METS: --- Stage: STAGE 1 Duration (min): 1 min : 0 sec Speed (mph): 1.7 Grade (%): 10 HR (bpm): 89 SBP (mmHg): 147 DBP (mmHg): 98 METS: --- Stage: STAGE 1 Duration (min): 2 min : 0 sec Speed (mph): 1.7 Grade (%): 10 HR (bpm): 95 SBP (mmHg): 147 DBP (mmHg): 98 METS: --- Stage: STAGE 1 Duration (min): 3 min : 0 sec Speed (mph): 1.7 Grade (%): 10 HR (bpm): 94 SBP (mmHg): 192 DBP (mmHg): 94 METS: --- Stage: STAGE 2 Duration (min): 1 min : 0 sec Speed (mph): 2.5 Grade (%): 12 HR (bpm): 103 SBP (mmHg): 192 DBP (mmHg): 94 METS: --- Stage: STAGE 2 Duration (min): 2 min : 0 sec Speed (mph): 2.5 Grade (%): 12 HR (bpm): 110 SBP (mmHg): 192 DBP (mmHg): 94 METS: --- Stage: STAGE 2 Duration (min): 3 min : 0 sec Speed (mph): 2.5 Grade (%): 12 HR (bpm): 114 SBP (mmHg): 192 DBP (mmHg): 94 METS: --- Stage: STAGE 3 Duration (min): 1 min : 0 sec Speed (mph): 3.4 Grade (%): 14 HR (bpm): 123 SBP (mmHg): 205 DBP (mmHg): 100 METS: --- Stage: STAGE 3 Duration (min): 2 min : 0 sec Speed (mph): 3.4 Grade (%): 14 HR (bpm): 133 SBP (mmHg): 205 DBP (mmHg): 100 METS: --- Stage: STAGE 3 Duration (min): 3 min : 0 sec Speed (mph): 3.4 Grade (%): 14 HR (bpm): 141 SBP (mmHg): 217 DBP (mmHg): 99 METS: --- Stage: STAGE 4 Duration (min): 0 min : 41 sec Speed (mph): 4.2 Grade (%): 16 HR (bpm): 152 SBP (mmHg): 217 DBP (mmHg): 99 METS: --- Stage: RECOVERY Duration (min): 0 min : 18 sec Speed (mph): 1.5 Grade (%): 0 HR (bpm): 151 SBP (mmHg): 217 DBP (mmHg): 99
--- NOTE | 2023-03-29 00:57 | ECG_ITS ---
Measurements Intervals [place] Rate: 61 P: 21 WV: 183 QRS: 20 QRSD: 104 T: 7 QT: 396 QTc: 402 Interpretive Statements SINUS RHYTHM MINIMAL VOLTAGE CRITERIA FOR LVH, CONSIDER NORMAL VARIANT [MEETS CRITERIA IN ONE OF: R(aVL), S(V1), R(V5), R(V5/V6)+S(V1)] COMPARED TO ECG 03/28/2023 22:33:46 NO SIGNIFICANT CHANGES Electronically Signed On 03-29-2023 15:16:13 SOFTWARE PROJECT MANAGER by Sheela Perez M.D.
--- NOTE | 2023-03-29 01:54 | ED.CHESTPAIN ---
HPI - Chest Pain General Chief Complaint: Chest Pain <Jamia Meng PA-C - Last Filed: 03/29/23 02:34> Stated Complaint: chest pain, left leg numbness <Jamia Meng PA-C - Last Filed: 03/29/23 02:34> Time Seen by Provider: 03/29/23 01:15 <Jamia Meng PA-C - Last Filed: 03/29/23 02:34> History of Present Illness HPI narrative: 42-year-old male reports for evaluation for chest pain and numbness. Patient states he has anterior chest pain that feels like it is ?pinching?. States this is chronic and occurs after he eats and when he lays flat at night. He has been evaluated for this and has been prescribed sucralfate which he takes with improvement of his chest pain. States he had the same chest pain around 9:00 p.m. tonight after eating dinner while he was sitting on the couch. States when the chest pain came on, he began developing in his left lower extremity and numbness to the posterior neck. States he always gets numbness in his posterior neck when he gets chest pain, however he has never had numbness in his leg before. States the leg numbness lasted approximately 2 minutes and while it was occurring, he had expressive aphasia. He has not experienced expressive aphasia, focal numbness or weakness since. He also reports intermittent numbness throughout his face in the V2-V3 intermittently for the past few days. He denies radiating chest pain but does endorse some shortness of breath associated with the chest pain. Denies vomiting, cough or congestion, diaphoresis, abdominal pain. He is endorsing some light headedness and had some diarrhea yesterday and today. Denies abdominal pain, urinary complaints, fever, focal weakness or vision changes, lower extremity edema. Denies loss of consciousness. Last known well 2100. Patient states he has very mild chest pain upon my evaluation. <Jamia Meng PA-C - Last Filed: 03/29/23 02:34> Related Data Home Medications: Home Medications Medication Instructions Recorded Confirmed atorvastatin 20 mg tablet 20 mg PO DAILY 02/08/21 02/23/23 blood sugar diagnostic (Accu-Chek 02/08/21 01/01/23 Guide test strips) lancets (Accu-Chek Softclix 02/08/21 01/01/23 Lancets) metformin 500 mg tablet,extended 500 mg PO DAILY 02/08/21 02/23/23 release 24 hr omeprazole 40 mg capsule,delayed 40 mg PO DAILY 01/01/23 02/23/23 release <Jamia Meng PA-C - Last Filed: 03/29/23 02:34> Allergies/Adverse Reactions: Allergies Allergy/AdvReac Type Severity Reaction Status Date / Time No Known Allergies Allergy Verified 02/23/23 19:06 <Jamia Meng PA-C - Last Filed: 03/29/23 02:34> Review of Systems Review of Systems: CONSTITUTIONAL: Denies fever, chills, or sweats. EYES: Denies visual changes, redness, or discharge. ENT: Denies rhinorrhea, congestion, sore throat, or otalgia. CARDIOVASCULAR: See HPI RESPIRATORY: Denies cough or dyspnea. GASTROINTESTINAL: Denies abdominal pain, nausea, vomiting, or diarrhea. GENITOURINARY: Denies dysuria or hematuria. SKIN: Denies rash or itching. MUSCULOSKELETAL: Denies back pain, joint pain, or myalgia. NEUROLOGIC: See HPI PSYCHIATRIC: Denies anxiety or depression. <Jamia Meng PA-C - Last Filed: 03/29/23 02:34> [facility] Past Medical History Medical History: Medical History Hyperlipidemia <Jamia Meng PA-C - Last Filed: 03/29/23 02:34> Surgical History Surgical History: Surgical History No pertinent past surgical history <Jamia Meng PA-C - Last Filed: 03/29/23 02:34> Family History Family History: Family History Mother Family history non-contributory <Jamia Meng PA-C - Last Filed: 03/29/23 02:34> Social History Social History: Social History (Rev
[2023-03-29] MEDS: FAMOTIDINE 20 MG/2 ML VIAL IV PUSH (02:18)
[2023-03-29] MEDS: BELLADONNA ALK/PHENOB ELIX 10 ML, MAG HYDROX/ALUMINUM HYD/SIMETH 30 ML, LIDOCAINE HCL 2... PO (02:18)
[2023-03-29 02:37] LABS: Appearance Urine Clear (Clear); Bilirubin Urine Negative (Negative); Blood Urine Negative (Negative); Color Urine Yellow (Yellow); Glucose Urine UA Negative (Negative); Ketones Urine Negative (Negative); Leukocyte Esterase Ur Negative LEU/UL (Negative); Nitrate Urine Negative (Negative); Protein Urine Negative (Negative); Specific Grav Ur 1.021 (1.001-1.035); Urobilinogen Urine 0.2 mg/dL (<2.0)
[2023-03-29 02:41] LABS: Add Urine Microscopic? NO
[2023-03-29] MEDS: ACETAMINOPHEN 500 MG TABLET 1000 MG PO (03:00)
[2023-03-29 03:16] LABS: Troponin I < 0.012 ng/mL (0.000-0.034)
--- NOTE | 2023-03-29 04:20 | ECG_ITS ---
Measurements Intervals [place] Rate: 54 P: 53 IN: 209 QRS: 24 QRSD: 110 T: 8 QT: 423 QTc: 402 Interpretive Statements SINUS BRADYCARDIA COMPARED TO ECG 03/29/2023 01:54:23 SINUS BRADYCARDIA NOW PRESENT Electronically Signed On 03-29-2023 15:16:55 SKIDDER OPERATOR by Sheela Perez M.D.
[2023-03-29 04:50] LABS: Troponin I < 0.012 ng/mL (0.000-0.034)
--- NOTE | 2023-03-29 06:05 | ADMGEN ---
This patient, Rufino Garibay, was admitted to 3 [facility] Surg Room 324-01. Patient/family oriented to hospital policies and general routines including ID bracelet, bed and alarms, visiting hours, pain management, procedures, bathroom and other care routines, personal items, smoking policy, room service/diet, and visiting hours. Information on how to activate the Rapid Response Team has been discussed. Patient/Family are encouraged to report perceived risks to care and to ask questions if they do not understand what they are told or what they should do.
[2023-03-29] MEDS: ASPIRIN 81 MG CHEWABLE TABLET PO (10:42)
--- NOTE | 2023-03-29 15:16 | WPDNEURCNPN ---
Assessment and Plan Assessment and plan (1) TIA (transient ischemic attack): Code(s): G45.9 - Transient cerebral ischemic attack, unspecified Status: Acute Plan 1. Chest pain for which she is being evaluated 2. TIA plan cardiac evaluation including the surface echocardiogram. Evaluate for the hyperlipidemia for the further instruction. Consult date: 03/29/23 HPI: Rufino Garibay is a 42 year old maleHas [facility] for the complaints of chest pain with numbness described as pinching sensation in the anterior chest but chronic in nature with episodes recurring after he eats and when he lays flat at night has been evaluated by the other physician has been giving the medications but today at the time of admission when he developed the chest pain he developed left lower extremity numbness and also numbness in his neck as well. the whole episode lasted for about 2minutes and at that time it was noted by the family that he had some expressive difficulties he also complained of intermittent numbness throughout his face for the last several days and also complaining of light headaches. Been taking atorvastatin 20mg daily metformin 500mg daily and omeprazole 40mg daily he is not allergic to any medications he is a former smoker by history is never a smoker and initial exam in the emergency room was nonfocal ,his vital signs were normal, ekg revealed normal finding with no atrial fibrillation, troponin, normal head neck CTA normal and MRI today is normal as well, chest CTA negative [facility] Past Medical History Medical History Hyperlipidemia Surgical History Surgical History No pertinent past surgical history Family History Family History Mother Family history non-contributory Father Diabetes mellitus Social History Social History Smoking packs per day: 0.05 Smoking cigarettes per day: 1.0 Years smoked: 20 Smoking pack-years: 1.00 Smoking status: Former smoker Alcohol intake: never Alcohol use details: former social drinker, no alcohol use now Substance use: never Substance use type: does not use Do You Feel Safe in your Home?: Yes Lack of Transportation: YES Lack of Food: Never True Current Housing: I Have Housing Concerned About Future Housing: YES Difficulty Paying Gas/Electric Bills: YES Difficulty Paying for Meds: YES Currently Unemployed: YES Education: High School Diploma/GED Difficulty w/ Childcare or Family Care: No Living arrangements: with family Gender identity (if verbalized by the patient): Male Spiritual care concerns: No Meds Home Medications and Allergies Home Medications Medication Instructions Recorded Confirmed Type atorvastatin 20 mg tablet 20 mg PO HS 02/08/21 03/29/23 History blood sugar diagnostic (Accu-Chek 02/08/21 01/01/23 History Guide test strips) lancets (Accu-Chek Softclix 02/08/21 01/01/23 History Lancets) metformin 500 mg tablet,extended 500 mg PO DAILY 02/08/21 03/29/23 History release 24 hr omeprazole 40 mg capsule,delayed 40 mg PO DAILY 01/01/23 03/29/23 History release sucralfate 1 g PO HS 03/29/23 03/29/23 History Allergies Allergy/AdvReac Type Severity Reaction Status Date / Time No Known Allergies Allergy Verified 03/29/23 06:10 Vital Signs Vital Signs - 24 hr 03/28/23 22:49 03/29/23 00:50 03/29/23 00:51 Temperature 36.5 C 36.5 C Pulse Rate 65 66 71 Respiratory Rate 16 24 H Blood Pressure 154/95 H 159/100 H Pulse Oximetry 99 100 Oxygen Delivery Room Air 03/29/23 00:57 03/29/23 03:38 03/29/23 02:11 Temperature Pulse Rate 62 63 Respiratory Rate 19 20 Blood Pressure 138/87 137/94 H Pulse Oximetry 97 95 98 Oxyg
--- NOTE | 2023-03-29 16:31 | PM.IMHP ---
H&P: HPI History of Present Illness Date/Time: 03/29/23 16:31 Chief Complaint: Chest pain Narrative: 41-year-old male past medical history of hyperlipidemia, presented to be accountable for chest pain and left-sided the numbness. Patient noted he has been having intermittent chest pain for the past: Described as chest pressure in addition to burning, noted diffuse force of the meals, 9/10 in intensity associated intermittently with lightheadedness and palpitations. However yesterday about 9:00 p.m. he started having left-sided numbness for the 1st time, associated with aphasia mass of soft by his , in addition to the typical chest pain despite him to present to the ER for positioning care. He denies any vomiting, no abdominal pain no diarrhea no dysuria no loss of consciousness. Patient noted that he had GI cocktail that was given to him in the [facility] relieved the symptoms chest pain. No focal symptoms at the time of this encountered the morning. Imaging studies including MRI of the brain unremarkable. Review of Systems Review of Systems: Eleven systems reviewed are negative incidentally his prep. [facility] Past Medical History Medical History (Updated 03/29/23 @ 16:46 by Blaze aGrcía MD) Hyperlipidemia Surgical History Surgical History No pertinent past surgical history Family History Family History Mother Family history non-contributory Father Diabetes mellitus Social History Social History Smoking packs per day: 0.05 Smoking cigarettes per day: 1.0 Years smoked: 20 Smoking pack-years: 1.00 Smoking status: Former smoker Alcohol intake: never Alcohol use details: former social drinker, no alcohol use now Substance use: never Substance use type: does not use Do You Feel Safe in your Home?: Yes Lack of Transportation: YES Lack of Food: Never True Current Housing: I Have Housing Concerned About Future Housing: YES Difficulty Paying Gas/Electric Bills: YES Difficulty Paying for Meds: YES Currently Unemployed: YES Education: High School Diploma/GED Difficulty w/ Childcare or Family Care: No Living arrangements: with family Gender identity (if verbalized by the patient): Male Spiritual care concerns: No Meds Home Medications and Allergies Home Medications Medication Instructions Recorded Confirmed Type atorvastatin 20 mg tablet 20 mg PO HS 02/08/21 03/29/23 History blood sugar diagnostic (Accu-Chek 02/08/21 01/01/23 History Guide test strips) lancets (Accu-Chek Softclix 02/08/21 01/01/23 History Lancets) metformin 500 mg tablet,extended 500 mg PO DAILY 02/08/21 03/29/23 History release 24 hr omeprazole 40 mg capsule,delayed 40 mg PO DAILY 01/01/23 03/29/23 History release sucralfate 1 g PO HS 03/29/23 03/29/23 History Allergies Allergy/AdvReac Type Severity Reaction Status Date / Time No Known Allergies Allergy Verified 03/29/23 06:10 Vital Signs Vital Signs - 24 hr 03/28/23 22:49 03/29/23 00:50 03/29/23 00:51 Temperature 97.7 F 97.7 F Pulse Rate 65 66 71 Respiratory Rate 16 24 H Blood Pressure 154/95 H 159/100 H Pulse Oximetry 99 100 Oxygen Delivery Room Air 03/29/23 00:57 03/29/23 03:38 03/29/23 02:11 Temperature Pulse Rate 62 63 Respiratory Rate 19 20 Blood Pressure 138/87 137/94 H Pulse Oximetry 97 95 98 Oxygen Delivery Room Air 03/29/23 02:16 03/29/23 04:55 03/29/23 05:37 Temperature Pulse Rate 63 60 60 Respiratory Rate 18 24 H 20 Blood Pressure 132/84 145/83 H 148/102 H Pulse Oximetry 98 96 16 L Oxygen Delivery 03/29/23 06:05 03/29/23 08:00 03/29/23 14:00 Temperature 96.9 F L 97.1 F L Pulse Rate 61 51 L 64 Respiratory Rate 18 18 Blood Pressure 155/92 H 139/77 Pulse Oximetry 98 95 Oxygen Delivery
[2023-03-29] MEDS: PANTOPRAZOLE SODIUM IV 40 MG VIAL IV PUSH (16:34)
[2023-03-29 19:45] LABS: Cholesterol 175 mg/dL (0-200); HDL Direct 25 mg/dL; Triglycerides 258 mg/dL (<150)
[2023-03-29 19:52] LABS: Hemoglobin A1C 6.7 % (<5.7)
[2023-03-29 19:56] LABS: LDL Cholesterol Direct 111 mg/dL
[2023-03-30] VITALS (10 sets, daily range): BP systolic 119–139; BP diastolic 75–98; PULSE 50–66; RESP 16–18; TEMP 35.9–36.6; O2SAT 96–100
--- NOTE | 2023-03-30 06:00 | ECHO_ITS ---
Patient Info Name: Rufino Garibay Age: 42 years : 1980 Gender: Male Ht: 71 in Wt: 309 lbs BSA: 2.71 m2 HR: 54 bpm BP: 127 / 74 mmHg Heart Rhythm: Bradycardia, Sinus Rhythm Technical Quality: Good Exam Date: 03/30/2023 9:49 AM Exam Location: Echo Lab Patient Status: Inpatient Admit Date: 03/29/2023 Staff Ordering Physician: Onel Puentes MD Planner Internship: Karina Lopez RDCS Attending Provider: Miriam Garcia MD Referring Physician: Dhaval MCLEOD; Exam Type: CA echo dop color flow w con Study Info Indications - TIA Complete two-dimensional, color flow and Doppler transthoracic echocardiogram is performed with contrast to opacify the left ventricle and to improve the deliniation of the left ventricle endocardial borders. Summary 1. Left ventricular chamber dimension is normal. 2. Left ventricular systolic function is normal, estimated at 60-65%. 3. There is moderately increased left ventricular wall thickness. 4. The left ventricular diastolic function is grade I diastolic dysfunction. 5. Right ventricular systolic function is normal. 6. Intact interatrial septum visualized by color flow and agitated saline imaging. Negative bubble study. 7. The aortic root size at the sinus of Valsalva is mildly dilated. 8. No significant valvular disease. Left Ventricle Left ventricular chamber dimension is normal. Left ventricular systolic function is normal, estimated at 60-65%. There is moderately increased left ventricular wall thickness. The left ventricular diastolic function is grade I diastolic dysfunction. Right Ventricle Right ventricular chamber dimension is normal. Right ventricular systolic function is normal. Left Atria Left atrial chamber dimension is normal. Right Atria Right atrial chamber dimension is normal. Atrial Septum Intact interatrial septum visualized by color flow and agitated saline imaging. Negative bubble study. Aortic Valve The aortic valve is not well visualized. There is no aortic valve stenosis. There is no aortic valve regurgitation. Pulmonic Valve The pulmonic valve is not well visualized. Mitral Valve There is trace mitral valve regurgitation. Tricuspid Valve There is trace tricuspid valve regurgitation. Pericardium/Pleural There is no pericardial effusion. Inferior Vena Cava Inferior vena cava is not well visualized. Aorta The aortic root size at the sinus of Valsalva is mildly dilated. Left Ventricular Outflow Tract Name Value Normal LVOT 2D LVOT Diameter 2.28 cm LVOT Doppler LVOT Peak Gradient 4 mmHg LVOT Mean Gradient 2 mmHg LVOT VTI 24.05 cm LVOT VTI/AV VTI Ratio 1.22 LVOT Stroke Volume 97.84 ml LVOT CO 4.87 l/min LVOT CI 1.79 L/min/m2 Pulmonic Valve Name Value Normal RVOT Doppler
[2023-03-30 06:54] LABS: Basophils Percent Auto 0.5 % (0.2-1.2); Eosinophils Absolute Auto 0.3 K/mm3 (0-0.3); Eosinophils Percent Auto 4.3 % (0-4.4); Hematocrit 40.3 % (42.0-52.0); Hemoglobin 12.9 g/dL (14.0-18.0); Immature Granulocyte Absolute 0.04 K/mm3 (0.00-0.031); Immature Granulocyte Percent A 0.5 % (0-0.5); Lymphocytes Absolute Auto 2.58 K/mm3 (0.9-3.2); Lymphocytes Percent Auto 32.3 % (18.3-44.2); Mean Corpuscular Hemoglobin 28.6 pg (26-34); Mean Corpuscular Volume 89.4 fl (80-100); Mean Platelet Volume 9.4 fl (7.4-10.4); Monocytes Absolute Auto 0.6 K/mm3 (0.1-0.6); Monocytes Percent Auto 7.5 % (2.6-8.5); Neutrophils Absolute Auto 4.4 K/mm3 (1.3-6.7); Neutrophils Percent Auto 54.9 % (45.5-73.1); Platelet Count Result 284 k/mm3 (150-375); Red Blood Count 4.51 M/mm3 (4.6-6.20); Red Cell Distribution Width 12.8 % (11.5-14.5)
[2023-03-30 07:12] LABS: Alanine Aminotransferase 47 U/L (6-50); Alkaline Phosphatase 106 U/L (38-126); Anion Gap 7 mmol/L (8-16); Aspartate Amino Transferase 42 U/L (17-59); Bilirubin,Total 0.4 mg/dL (0.2-1.3); Blood Urea Nitrogen 13 mg/dL (9-20); Calcium 9.1 mg/dL (8.4-10.2); Carbon Dioxide 28 mmol/L (22-30); Chloride 103 mmol/L (98-107); Estimated CRCL calculation 152 ml/min; Estimated Glomerular Filt Rate > 60; Glucose 107 mg/dL (65-110); Magnesium 2.4 mg/dL (1.6-2.3); Potassium 4.1 mmol/L (3.4-5.0); Sodium 138 mmol/L (137-145)
[2023-03-30] MEDS: PANTOPRAZOLE SODIUM IV 40 MG VIAL IV PUSH ×2 (08:01→16:40)
[2023-03-30] MEDS: ATORVASTATIN 40 MG TABLET PO (08:01)
[2023-03-30] MEDS: ASPIRIN 81 MG CHEWABLE TABLET PO (08:01)
--- NOTE | 2023-03-30 09:33 | WPDNEURCNPN ---
Assessment and Plan Assessment and plan (1) TIA (transient ischemic attack): Code(s): G45.9 - Transient cerebral ischemic attack, unspecified Status: Acute (2) Chest pain: Code(s): R07.9 - Chest pain, unspecified Status: Acute (3) Hyperlipidemia: Code(s): E78.5 - Hyperlipidemia, unspecified Status: Acute (4) Diabetes: Code(s): E11.9 - Type 2 diabetes mellitus without complications Status: Acute Plan Rufino Garibay is a 42 year old male with a history of hyperlipidemia presenting for transient focal neurological symptoms of LLE numbness and expressive aphasia. MRI brain is negative. Concern for possible TIA. He does have HLD and is diabetic. No evidence of intracranial or extracranial stenosis on CTA brain/carotid. 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 ABCD2 score is 4, indicating need for DAPT. - Start Aspirin 81mg daily - Add Plavix 75mg daily x 3 weeks - Increase Lipitor to 40mg daily, goal LDL is <70 - Given age will obtain hypercoagulability work-up - Since symptoms seem to occur in the setting of chest pain, I would recommend additional cardiac work-up. Bubble study was negative. At the minimum should have a Holter placed prior to discharge. Need for LEONIDES vs Loop can be decided by Cardiology. Consult date: 03/30/23 Reason for consult: TIA HPI: Rufino Garibay is a 42 year old male with a history of hyperlipidemia presenting for transient focal neurological symptoms. Patient presented due to chest pain as well. Around 9PM on day of presentation, he developed chest pain as well as LLE numbness. Previously he has had numbness on the back of the neck when he gets chest pain, but has never had LLE numbness. He also had expressive aphasia at the time, which is also a new symptom for him. The LLE numbness and aphasia lasted about 2 minutes. He did not have any focal weakness. He presented to [facility] ED where he had CT head and CTA brain/carotid which were both unrevealing. His exam was non focal and his NIH score was 0. MRI brain has been done which is negative for acute stroke. LDL is 111 and A1c is 6.7. He takes Lipitor 20mg daily but no antiplatelet therapy. EKG showed sinu rhythm. Echocardiogram was negative for shunt on bubble study. Patient reports feeling fine right now. In the past year he has had short transient episodes of L facial and LUE numbness that lated only a few minutes. No confusion, staring off, or involuntary movements. Family has not noticed any seizure-like activity. Patient denies any family history of clotting disorders, early cardiac disease or stroke, or recurrent miscarriages in the family. He used to smoke but does not currently smoke. Review of Systems Review of Systems: All systems reviewed & are unremarkable except as noted in HPI and below PMFSH Past Medical History Medical History Hyperlipidemia Surgical History Surgical History No pertinent past surgical history Family History Family History Mother Family history non-contributory Father Diabetes mellitus Social History Social History Smoking packs per day: 0.05 Smoking cigarettes per day: 1.0 Years smoked: 20 Smoking pack-years: 1.00 Smoking status: Former smoker Alcohol intake: never Alcohol use details: former social drinker, no alcohol use now Substance use: never Substance use type: does not use Do You Feel Safe in your Home?: Yes Lack of Transportation: YES Lack of Food: Never True Current Housing: I Have Housing Concerned About Future Housing: YES Difficulty Paying Gas/Electric Bills: YES Difficulty Paying for Meds: YES Currently Unemployed: YES Education: High School Diploma/GED Difficulty w/ Childcare or Family Care: No Living arrange
[2023-03-30] MEDS: PERFLUTREN LIPID MICROSPHERES 1.5 ML VIAL DILUTED TO 10 ML TOTAL VOLUME IV PUSH (10:00)
--- NOTE | 2023-03-30 11:08 | IVDEFINITY ---
Prior to administration of IV Definity the patient was educated on the risks and benefits of the imaging enhancing agent including potential adverse side effects. The patient verbalized understanding. Allergies were verified. No exclusion criteria were identified and at least one of the following inclusion criteria were met: 1) physician request, 2) patient technically difficult to image (per the [place] [employer] guidelines of two or more segments not discernable within the apical view), or 3) questionable left ventricular function. ?
--- NOTE | 2023-03-30 14:27 | WPDNEUROPN ---
Progress Note: A&P Assessment and Plan (1) TIA (transient ischemic attack): Code(s): G45.9 - Transient cerebral ischemic attack, unspecified Status: Acute (2) Chest pain: Code(s): R07.9 - Chest pain, unspecified Status: Acute (3) Hyperlipidemia: Code(s): E78.5 - Hyperlipidemia, unspecified Status: Acute (4) Diabetes: Code(s): E11.9 - Type 2 diabetes mellitus without complications Status: Acute Plan Rufino Garibay is a 42 year old male with a history of hyperlipidemia presenting for transient focal neurological symptoms of LLE numbness and expressive aphasia. MRI brain is negative. Concern for possible TIA. He does have HLD and is diabetic. No evidence of intracranial or extracranial stenosis on CTA brain/carotid. 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 ABCD2 score is 4, indicating need for DAPT. - Start Aspirin 81mg daily - Add Plavix 75mg daily x 3 weeks - Increase Lipitor to 40mg daily, goal LDL is <70 - Given age will obtain hypercoagulability work-up - Since symptoms seem to occur in the setting of chest pain, I would recommend additional cardiac work-up. Bubble study was negative. At the minimum should have a Holter placed prior to discharge. Need for LEONIDES vs Loop can be decided by Cardiology.? Subjective Date/time seen: 03/30/23 14:27 Interval history: Rufino Garibay is a 42 year old male with a history of hyperlipidemia presenting for transient focal neurological symptoms. Patient presented due to chest pain as well. Around 9PM on day of presentation, he developed chest pain as well as LLE numbness. Previously he has had numbness on the back of the neck when he gets chest pain, but has never had LLE numbness. He also had expressive aphasia at the time, which is also a new symptom for him. The LLE numbness and aphasia lasted about 2 minutes. He did not have any focal weakness. He presented to [facility] ED where he had CT head and CTA brain/carotid which were both unrevealing. His exam was non focal and his NIH score was 0. MRI brain has been done which is negative for acute stroke. LDL is 111 and A1c is 6.7. He takes Lipitor 20mg daily but no antiplatelet therapy. EKG showed sinu rhythm. Echocardiogram was negative for shunt on bubble study. Patient reports feeling fine right now. In the past year he has had short transient episodes of L facial and LUE numbness that lated only a few minutes. No confusion, staring off, or involuntary movements. Family has not noticed any seizure-like activity. Patient denies any family history of clotting disorders, early cardiac disease or stroke, or recurrent miscarriages in the family. He used to smoke but does not currently smoke. Review of Systems Review of Systems: All systems reviewed & are unremarkable except as noted in HPI and below Exam Const: General: comfortable and no acute distress HENMT: Mouth: Yes moist mucous membranes Eyes: Pupils: Equal, round and reactive pupils present EOM: EOMs intact bilaterally Resp: Effort & Inspection: normal respiratory effort Skin: General skin exam: normal color Neuro: Other: Pupils equal and reactive bilaterally, EOMI, face symmetric, facial sensation intact, tongue protrudes midline, palate midline. Shoulder shrug normal. Strength 5/5 throughout. Sensation intact throughout. FNF normal bilaterally. Language comprehension and fluency intact. Gait deferred. Extrem: General: normal to inspection Psych: Mental Status: mental status grossly normal Affect: normal affect Objective Data Vital Signs Vital Signs: Vital Signs - 24 hr 03/29/23 14:59 03/29/23 20:40 03/29/23 20:02 Temperature Pulse Rate 64 55 L Respiratory Rate 18 Blood Pressure Pulse Oximetry 97 97 Oxygen Delivery Room Air Room Air 03/29/23 20:35 03/30/23 00:02 03/30/23 04:02 Temperature 36.4 C Pulse Rate 62 63 54 L Respiratory Rate 20 Blood Pressure 127/74 Pulse Oximetry 98 Oxygen De
--- NOTE | 2023-03-30 14:53 | PM.IMPN ---
Progress Note: A&P Assessment and Plan (1) Chest pain: Code(s): R07.9 - Chest pain, unspecified Status: Acute Assessment and Plan: Chest pain appears to be related to meals pulse 50 custody disease suspected however will rule out cardiac origin Echo and stress status wnl, A1c 6.7 , LDL 111 Start patient on Protonix IV b.i.d. tentatively Monitor (2) TIA (transient ischemic attack): Code(s): G45.9 - Transient cerebral ischemic attack, unspecified Status: Acute Assessment and Plan: MRI brain, CT head, CT angiogram head and neck unremarkable. Continue aspirin, Plavix x21 days, Lipitor Echo and stress status wnl, A1c 6.7 , LDL 111 PT/OT/ST LEONIDES, hypercoagulable and autoimmune studies pending cardiology consulted for LEONIDES and loop recorder implantation Neurology following (3) Hyperlipidemia: Code(s): E78.5 - Hyperlipidemia, unspecified Status: Acute Assessment and Plan: Continue Lipitor (4) Diabetes: Code(s): E11.9 - Type 2 diabetes mellitus without complications Status: Acute Assessment and Plan: A1c 6.7 Metformin on discharge SSI with [facility] Diabetic education Subjective Date/time seen: 03/30/23 14:53 Interval history: being managed for cryptogenic stroke Cardiology consulted for LEONIDES and loop recorder implantation Ahypercoagulable and autoimmune studies pending Review of Systems Review of Systems: Eleven systems reviewed are negative incidentally his prep. Exam Const: General: comfortable Eyes: General: appearance normal, both eyes and all related structures Neck: Neck: supple Resp: Effort & Inspection: normal respiratory effort Auscultation: clear to auscultation bilaterally Cardio: Rate: regular rate Rhythm: regular rhythm Neuro: General: gait normal Speech: normal speech Motor exam (neuro): 5/5 motor strength present throughout Sensory Exam: normal sensation Objective Data Vital Signs Vital Signs: Vital Signs - 24 hr 03/29/23 14:59 03/29/23 20:40 03/29/23 20:02 Temperature Pulse Rate 64 55 L Respiratory Rate 18 Blood Pressure Pulse Oximetry 97 97 Oxygen Delivery Room Air Room Air 03/29/23 20:35 03/30/23 00:02 03/30/23 04:02 Temperature 97.6 F Pulse Rate 62 63 54 L Respiratory Rate 20 Blood Pressure 127/74 Pulse Oximetry 98 Oxygen Delivery 03/30/23 05:15 03/30/23 08:00 03/30/23 09:37 Temperature 96.7 F L Pulse Rate 59 L Respiratory Rate 18 Blood Pressure 139/98 H Pulse Oximetry 97 96 Oxygen Delivery Room Air Room Air 03/30/23 10:30 03/30/23 12:00 Temperature Pulse Rate 50 L 66 Respiratory Rate Blood Pressure Pulse Oximetry Oxygen Delivery Intake/Output Intake/Output: Intake & Output 03/27/23 03/28/23 03/29/23 03/30/23 23:59 23:59 23:59 23:59 Intake Total 2090 1390 Balance 2090 1390 Meds/Results Medications: Active Medications Generic Name Dose Route Start Last Admin Trade Name Freq PRN Reason Stop Dose Admin Aspirin 81 mg 03/29/23 08:00 03/30/23 08:01 Aspirin 81 Mg Chewable Tablet PO 81 mg DAILY@0800 NEELAM Administration Atorvastatin Calcium 40 mg 03/30/23 09:00 03/30/23 08:01 Atorvastatin 40 Mg Tablet PO 40 mg DAILY NEELAM Administration Clopidogrel Bisulfate 75 mg 03/31/23 09:00 Clopidogrel Bisulfate 75 Mg Tablet PO 04/20/23 09:01 QAM [facility] Pantoprazole Sodium 40 mg 03/29/23 17:00 03/30/23 08:01 Pantoprazole Sodium Iv 40 Mg Vial IV PUSH 40 mg BID NEELAM Administration Perflutren Lipid Microsphere 0 ml 03/29/23 04:32 Perflutren Lipid Microspheres 1.5 Ml Vial Diluted To 10 Ml Total Volume IV PUSH 04/01/23 04:34 ONCE PRN adequate visualization Protocol Radiology Results: ITS Impressions Chest X-Ray 03/28/23 23:25 IMPRESSION: No acute cardiopulmonary process. Chest CTA 03/29/23 06:10 Impression: No evidence of pul
--- NOTE | 2023-03-30 22:37 | PC.NURSE ---
called HELIO Burleson for nausea medication for patient
[2023-03-30] MEDS: ONDANSETRON INJ 4 MG/2 ML VIAL IV PUSH (22:51)
[2023-03-31] VITALS: PULSE 61
[2023-03-31 00:09] LABS: CRP 1.4 mg/dL (<1.0)
[2023-03-31 00:13] LABS: D Dimer 0.32 ug/mL (<0.48)
[2023-03-31 04:30] VITALS: BP 123/70; PULSE 62; RESP 20; TEMP 36.6; O2SAT 98
[2023-03-31 05:11] VITALS: PULSE 56
[2023-03-31 08:00] VITALS: PULSE 65
--- NOTE | 2023-03-31 08:41 | PM.CNCAR ---
Assessment and Plan Assessment and plan (1) TIA (transient ischemic attack): Code(s): G45.9 - Transient cerebral ischemic attack, unspecified Status: Acute Plan This is a 42-year-old man concerning has come in with an episode consistent with TIA. Symptoms were transient and has resolved apparently his evaluation thus far has been unremarkable. Transthoracic echo with agitated saline contrast was done yesterday which is unremarkable. There is little chance that he has a structural cardiac problems that would cause cardioembolic event and in my opinion transesophageal echo would be very low yield exam. On the other hand it would be important to rule out occult atrial fibrillation. I agree that at the very least a 30 day event monitor should be done or preferably the patient should have a loop recorder implanted. He understands all of this he would like to talk to his before we proceed in either direction. If he decides on a loop recorder it could possibly happen today we find out early enough in the day. On the other hand either ceased in certainly be set up through my office as an outpatient. Víctor Palomo MD [facility] History of Present Illness History of Present Illness Consult date/time: 03/31/23 08:41 Reason For Visit: TIA, Atypical Chest Pain Narrative: This is a 42-year-old man I am seeing at the request of the Neurology it sales consultant to consider esophageal ECHO and implantation of a loop recorder. The patient is unknown to me prior to this encounter this is a very pleasant gentleman who came to the hospital couple of days ago after an episode of concerning symptoms involving left upper and lower extremity numbness and transient expressive aphasia. The symptoms have occurred in the past in his left arm but not in the lower extremity and previously had not been associated with this expressive aphasia. His evaluation up until this point appears to have been unremarkable. He does not have any evidence of cerebrovascular disease his cardiac rhythm on telemetry has been normal. His 12 lead electrocardiogram is unremarkable and an echocardiogram with contrast yesterday was also unremarkable. Specifically there was no evidence of shunt on saline contrast bubble study. He feels well morning and does not have any other complaints. His home medications included metformin and atorvastatin. Does not to breath orthopnea PND edema he has no awareness of palpitations. Review of Systems Constitutional: Constitutional: Reports no additional constitutional complaints Eyes: Eyes: Reports no additional eye complaints ENT: Reports system reviewed and no additional complaints, except as documented Cardiovascular: Cardiovascular: Reports no additional cardiovascular complaints Respiratory: Respiratory: Reports no additional respiratory complaints Gastrointestinal: Gastrointestinal: Reports heartburn Musculoskeletal: Musculoskeletal: Reports no additional musculoskeletal complaints Integumentary/Breasts: Skin/Breast: Reports system reviewed and no additional complaints, except as docu Neurologic: Reports as per HPI Endocrine: Endocrine: Reports no additional endocrine complaints Hematologic/Lymphatic: Hematologic/Lymphatic: Reports no additional hematologic/lymphatic complaints Allergic/Immunologic: Allergic/Immunologic: Reports no additional allergic/immunologic complaints PMFSH Past Medical History Medical History Hyperlipidemia Surgical History Surgical History No pertinent past surgical history Family History Family History Mother Family history non-contributory Father Diabetes mellitus Social History Social History Smoking packs per day: 0.05 Smoking cigarettes per day: 1.0 Years smoked:
[2023-03-31] MEDS: ATORVASTATIN 40 MG TABLET PO (09:24)
[2023-03-31] MEDS: CLOPIDOGREL BISULFATE 75 MG TABLET PO (09:24)
[2023-03-31] MEDS: PANTOPRAZOLE SODIUM IV 40 MG VIAL IV PUSH (09:24)
[2023-03-31] MEDS: ASPIRIN 81 MG CHEWABLE TABLET PO (09:24)
--- NOTE | 2023-03-31 10:37 | WPDNEUROPN ---
Progress Note: A&P Assessment and Plan (1) TIA (transient ischemic attack): Code(s): G45.9 - Transient cerebral ischemic attack, unspecified Status: Acute (2) Chest pain: Code(s): R07.9 - Chest pain, unspecified Status: Acute (3) Hyperlipidemia: Code(s): E78.5 - Hyperlipidemia, unspecified Status: Acute (4) Diabetes: Code(s): E11.9 - Type 2 diabetes mellitus without complications Status: Acute Plan Rufino Garibay is a 42 year old male with a history of hyperlipidemia presenting for transient focal neurological symptoms of LLE numbness and expressive aphasia. MRI brain is negative. Concern for possible TIA. He does have HLD and is diabetic. No evidence of intracranial or extracranial stenosis on CTA brain/carotid. 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 ABCD2 score is 4, indicating need for DAPT. - Start Aspirin 81mg daily - Add Plavix 75mg daily x 3 weeks - Increase Lipitor to 40mg daily, goal LDL is <70 - Hypercoagulability labs obtained - Loop recorder planned with Cardiology today Subjective Date/time seen: 03/31/23 10:37 Interval history: Rufino Garibay is a 42 year old male with a history of hyperlipidemia presenting for transient focal neurological symptoms. Patient presented due to chest pain as well. Around 9PM on day of presentation, he developed chest pain as well as LLE numbness. Previously he has had numbness on the back of the neck when he gets chest pain, but has never had LLE numbness. He also had expressive aphasia at the time, which is also a new symptom for him. The LLE numbness and aphasia lasted about 2 minutes. He did not have any focal weakness. He presented to [place] ED where he had CT head and CTA brain/carotid which were both unrevealing. His exam was non focal and his NIH score was 0. MRI brain has been done which is negative for acute stroke. LDL is 111 and A1c is 6.7. He takes Lipitor 20mg daily but no antiplatelet therapy. EKG showed sinu rhythm. Echocardiogram was negative for shunt on bubble study. Patient reports feeling fine right now. In the past year he has had short transient episodes of L facial and LUE numbness that lated only a few minutes. No confusion, staring off, or involuntary movements. Family has not noticed any seizure-like activity. Patient denies any family history of clotting disorders, early cardiac disease or stroke, or recurrent miscarriages in the family. He used to smoke but does not currently smoke. Cardiology is planning for Loop recorder placement today. Review of Systems Review of Systems: All systems reviewed & are unremarkable except as noted in HPI and below Exam Const: General: comfortable and no acute distress HENMT: Mouth: Yes moist mucous membranes Eyes: Pupils: Equal, round and reactive pupils present EOM: EOMs intact bilaterally Resp: Effort & Inspection: normal respiratory effort Skin: General skin exam: normal color Neuro: Other: Pupils equal and reactive bilaterally, EOMI, face symmetric, facial sensation intact, tongue protrudes midline, palate midline. Shoulder shrug normal. Strength 5/5 throughout. Sensation intact throughout. FNF normal bilaterally. Language comprehension and fluency intact. Gait deferred. Extrem: General: normal to inspection Psych: Mental Status: mental status grossly normal Affect: normal affect Objective Data Vital Signs Vital Signs: Vital Signs - 24 hr 03/30/23 12:00 03/30/23 14:00 03/30/23 16:35 Temperature 36.6 C Pulse Rate 66 59 L 59 L Respiratory Rate 18 Blood Pressure 119/78 Pulse Oximetry 97 Oxygen Delivery 03/30/23 20:00 03/30/23 20:00 03/30/23 20:55 Temperature 36.4 C Pulse Rate 59 L 65 61 Respiratory Rate 16 Blood Pressure 125/75 Pulse Oximetry 97 100 Oxygen Delivery Room Air 03/31/23 00:00 03/31/23 05:11 03/31/23 04:30 Temperature 36.6 C Pulse Rate 61 56 L 62 Respiratory Rate 20 Blood Pressure
[2023-03-31 12:00] VITALS: PULSE 53
--- NOTE | 2023-03-31 12:56 | PM.DS ---
DS: Admitting Diagnosis Discharge Date 03/31/2023 Admitting Diagnosis TIA DS: Discharge Diagnosis Discharge Diagnosis (1) Chest pain: Code(s): R07.9 - Chest pain, unspecified Status: Acute (2) TIA (transient ischemic attack): Code(s): G45.9 - Transient cerebral ischemic attack, unspecified Status: Acute (3) Hyperlipidemia: Code(s): E78.5 - Hyperlipidemia, unspecified Status: Acute (4) Diabetes: Code(s): E11.9 - Type 2 diabetes mellitus without complications Status: Acute DS: Summary Hospital Course Hospital Course: 42-year-old male with history of hyperlipidemia type 2 diabetes presented with chest pain and left lower extremity numbness also had expressive aphasia that time lasted about 2 minutes. No focal weakness. CT head and CTA brain/carotid were unrevealing. MRI brain was done and was negative for acute stroke. LDL is 111. A1c 6.7. On Lipitor 20 mg daily at home. No antiplatelet therapy. EKG with sinus rhythm. Echo was negative for shunt on bubble study. Patient had TIA cryptogenic and etiology. Started on dual antiplatelet therapy for at least 3 weeks followed by aspirin 81 mg daily. Increase Lipitor to 40 mg daily with a goal LDL of less than 70 hypercoagulability panel was also obtained which is pending at the time of discharge. Due to the cryptogenic etiology cardiology was consulted for possible LEONIDES and loop recorder. Cardiology suggested LEONIDES to be have very low yield and her for loop recorder however patient refused to get loop recorder and will consider is an outpatient basis. Holter monitor was arranged for him to get discharged on today. He will continue to follow-up with neurology as an outpatient basis. Time Spent with Patient Time attestation: Total time spent providing and/or coordinating discharge services: 35 minutes Exam Narrative: GENERAL: Well-appearing, well-nourished, and in no acute distress. HEAD: Normocephalic, atraumatic. EYES: PERRLA and EOMI. ENT: Nares clear, no rhinorrhea or epistaxis. Mucous membranes moist. NECK: Supple. CHEST: Clear to auscultation. No respiratory distress. HEART: Regular rate and rhythm. No murmur heard. Normal peripheral pulses. ABDOMEN: Soft, nontender, nondistended, normal active bowel sounds. EXTREMITIES: Normal range of motion. No edema. SKIN: Warm, dry, no rash. NEURO: No focal deficits. Alert and oriented x3.? Cranial nerves 2-12 intact.? Strength 5/5 in BUE and BLE.? Sensation intact throughout.? DS: Data Data Completed and Pending Completed studies during hospitalization: Exam Type: ? ? CA echo dop color flow w con Study Info Indications ?? ? - TIA Complete two-dimensional, color flow and Doppler transthoracic echocardiogram is performed with contrast to opacify the left ventricle and to improve the deliniation of the left ventricle endocardial borders. Account #: ? ? [id number] Summary ? 1. Left ventricular chamber dimension is normal. ? 2. Left ventricular systolic function is normal, estimated at 60-65%. ? 3. There is moderately increased left ventricular wall thickness. ? 4. The left ventricular diastolic function is grade I diastolic dysfunction. ? 5. Right ventricular systolic function is normal. ? 6. Intact interatrial septum visualized by color flow and agitated saline imaging. Negative bubble study. ? 7. The aortic root size at the sinus of Valsalva is mildly dilated. ? 8. No significant valvular? disease. Left Ventricle ? Left ventricular chamber dimension is normal. ? Left ventricular systolic function is normal, estimated at 60-65%. ? There is moderately increased left ventricular wall thickness. ? The left ventricular diastolic function is grade I diastolic dysfunction. Right Ventricle ? Right ventricular chamber dimension is normal. ? Right ventricular systolic function is normal. Left Atria ? Left atrial chamber dimension is normal. Right Atria ? Right atria
--- NOTE | 2023-03-31 18:54 | PC.NURSE ---
Pt discharged home with . Pt educated on discharge instructions. Pt taken down to have halter monitor placed. Pt denied loop recorder. Pt compliant with care. Pt was monitored for any changes in status while here. IV removed, tip intact. Pt tolerated well.
[2023-04-03 20:53] LABS: Factor VIII Activity 114 % normal (50-180)
[2023-04-03 21:05] LABS: Antithrombin III Activity 99 % normal (80-135)
[2023-04-04 02:35] LABS: APC Ratio 4.2 ratio (>=2.1)
[2023-04-04 04:11] LABS: Antithrombin III Activity 103 % normal (80-135)
[2023-04-04 10:46] LABS: Myeloperoxidase Ab <1.0 AI (<1.0)
[2023-04-04 21:12] LABS: Homocysteine 11.8 umol/L (<11.4)
[2023-04-05 05:27] LABS: Hexagonal Phase Confirm Negative (Negative); Lupus dRVVT Screen 39 sec (<=45); PTT-LA Screen 42 sec (<=40)
[2023-04-06 07:51] LABS: Lipoprotein A <10 nmol/L (<75)
[2023-04-07 20:22] LABS: Factor V (Leiden) Mutation NEGATIVE
[2023-04-08 11:21] LABS: Anti Cardio Antibody IgM <2.0 MPL-U/mL (<20.0); Anti Cardiolipin Antibody IgA <2.0 APL-U/mL (<20.0); Anti Cardiolipin Antibody IgG <2.0 GPL-U/mL (<20.0)
[2023-04-11 20:47] LABS: Anti Cardio Antibody IgM <2.0 MPL-U/mL (<20.0); Anti Cardiolipin Antibody IgA <2.0 APL-U/mL (<20.0); Anti Cardiolipin Antibody IgG <2.0 GPL-U/mL (<20.0); PS/PT AB IgG 42 U (<=30); PS/PT AB IgM 19 U (<=30)
== END 2023-03-31 14:10 | disposition home or self-care (01) ==
LOC: ANHED 03-29 04:32 → ANH3MEDSUR 03-30 07:01
PROVIDERS: Internal Medicine; Physician Assistant; Student in an Organized Health Care Education/Training Program; Admitting Provider Internal Medicine; Emergency Provider Emergency Medicine; PCP Family Medicine; Visit Provider Internal Medicine
DX: G45.9 Transient cerebral ischemic attack, unspecified (principal); R07.9 Chest pain, unspecified; E78.5 Hyperlipidemia, unspecified; E11.9 Type 2 diabetes mellitus without complications; K21.9 Gastro-esophageal reflux disease without esophagitis; Z87.891 Personal history of nicotine dependence; Z79.84 Long term (current) use of oral hypoglycemic drugs; Z79.899 Other long term (current) drug therapy
CPT/HCPCS: 36415; 70496; 70498; 70553; 71046; 71275; 80053; 80061; 81003; 81240; 81241; 81291; 83036; 83090; 83690; 83695; 83735; 84484; 85025; 85240; 85250; 85260; 85300; 85303; 85306; 85307; 85380; 85610; 85613; 85730; 86036; 86140; 86146; 86147; 93005; 93017; 96374; 96375; 96376; 99285; A9270; A9577; C8929; C9113; G0378; J2405; Q9957; Q9967

== ENCOUNTER 2023-06-02 08:08 | Emergency (ER) | payer OTHER, SELFPAY ==
[2023-06-02 08:11] VITALS: BP 177/98; PULSE 76; RESP 16; TEMP 36.7; O2SAT 98
--- NOTE | 2023-06-02 08:43 | ED.GENADULT ---
HPI - General Adult General Chief complaint: Unspecified Stated complaint: I feel something in my throat Time Seen by Provider: 06/02/23 08:14 History of Present Illness HPI narrative: patient is a 42-year-old male who presents ER with sore throat. Reports he woke up this morning and has discomfort in back of throat and makes your like it is hard to swallow. Symptoms are worse he lays back flat. Reports he was out drinking alcohol last night. He has history of acid reflux. Denies any vomiting. He is able to tolerate his oral secretions and fluids. No fevers or chills or sweats. No wheezing or rashes. No swelling of the tongue or lips. Related Data Home Medications Medication Instructions Recorded Confirmed blood sugar diagnostic (Accu-Chek 02/08/21 05/18/23 Guide test strips) lancets (Accu-Chek Softclix 02/08/21 05/18/23 Lancets) metformin 500 mg tablet,extended 500 mg PO DAILY 02/08/21 05/18/23 release 24 hr sucralfate 1 g PO HS 03/29/23 05/18/23 Allergies Allergy/AdvReac Type Severity Reaction Status Date / Time No Known Allergies Allergy Verified 06/02/23 08:08 Review of Systems Constitutional: Constitutional: Reports no additional constitutional complaints ENT: Denies hoarseness, Denies lip swelling, Reports sore throat and Denies tongue swelling Cardiovascular: Cardiovascular: Reports no additional cardiovascular complaints Respiratory: Respiratory: Reports no additional respiratory complaints [facility] Past Medical History Medical History (Updated 06/02/23 @ 10:02 by Benny Jacobs MD) Diabetes Hyperlipidemia TIA (transient ischemic attack) Surgical History Surgical History No pertinent past surgical history Family History Family History Mother Family history non-contributory Father Diabetes mellitus Social History Social History Smoking packs per day: 0.05 Smoking cigarettes per day: 1.0 Years smoked: 20 Smoking pack-years: 1.00 Smoking status: Former smoker Alcohol intake: never Alcohol use details: former social drinker, no alcohol use now Substance use: never Substance use type: does not use Do You Feel Safe in your Home?: Yes Lack of Transportation: YES Lack of Food: Never True Current Housing: I Have Housing Concerned About Future Housing: YES Difficulty Paying Gas/Electric Bills: YES Difficulty Paying for Meds: YES Currently Unemployed: YES Education: High School Diploma/GED Difficulty w/ Childcare or Family Care: No Living arrangements: with family Gender identity (if verbalized by the patient): Male Spiritual care concerns: No Exam Narrative: GENERAL: Well-appearing, morbidly obese, and in no acute distress. HEAD: Normocephalic, atraumatic. ENT: Mucous membranes moist. Edematous uvula, normal tonsils. NECK: Supple. CHEST: Clear to auscultation. No respiratory distress. HEART: Regular rate and rhythm. Normal peripheral pulses. EXTREMITIES: Normal range of motion. No edema. NEURO: Alert and oriented x3. PSYCH: Normal mood and affect. Course Course Emergency Course: Improved with viscous lidocaine, also received dexamethasone. Vital Signs Vital signs: Vital Signs Temperature 98.1 F 06/02/23 08:11 Pulse Rate 76 06/02/23 08:11 Respiratory Rate 16 06/02/23 08:11 Blood Pressure 177/98 H 06/02/23 08:11 Pulse Oximetry 98 06/02/23 08:11 Oxygen Delivery Room Air 06/02/23 08:11 Temperature 98.1 F 06/02/23 08:11 Pulse Rate 76 06/02/23 08:11 Respiratory Rate 16 06/02/23 08:11 Blood Pressure 177/98 H 06/02/23 08:11 Pulse Oximetry 98 06/02/23 08:11 Oxygen Delivery Room Air 06/02/23 08:11 Medical Decision Making Vital Signs Vital Signs: Vital Signs Temperature 98.1 F 06/02/23
[2023-06-02] MEDS: LIDOCAINE HCL 2% VISC SOLN 15 ML UDC PO (09:39)
[2023-06-02] MEDS: dexAMETHasone 10 MG/10 ML INTENSOL CONC (*BKC) PO (09:39)
== END 2023-06-02 10:18 | disposition home or self-care (01) ==
PROVIDERS: Emergency Provider Emergency Medicine; PCP Family Medicine
DX: K12.2 Cellulitis and abscess of mouth (principal); E11.9 Type 2 diabetes mellitus without complications; E78.5 Hyperlipidemia, unspecified; Z86.73 Personal history of transient ischemic attack (TIA), and cerebral infarction without residual deficits; Z87.891 Personal history of nicotine dependence
CPT/HCPCS: 99283; J8540

== ENCOUNTER 2024-07-16 13:20 | Emergency (ER) | payer OTHER, SELFPAY ==
[2024-07-16 13:28] VITALS: BP 150/80; PULSE 70; RESP 16; TEMP 36.8; O2SAT 97
--- NOTE | 2024-07-16 13:35 | ED_ITS ---
HPI - URI/Sore Throat General Chief Complaint: Upper Respiratory Infection Stated Complaint: BODY ACHES/FEVER/COUGH/CHEST & BACK PAIN Time Seen by Provider: 07/16/24 13:35 Source: patient Mode of arrival: ambulatory Limitations: no limitations History of Present Illness HPI Narrative: Patient is a 43 year old male who presents to the clinic with complaints of a cough, body aches, chills, and chest tightness with coughing x 2 days. He also reports having nasal congestion for 3 weeks. He has been taking Tyelnol and mucinex over the counter, with minimal relief. Denies any shortness of breath, difficulty swallowing, diarrhea, nausea, vomiting, or fevers. Related Data Home Medications ?Medication ?Instructions ?Recorded ?Confirmed ?Last Taken ?Type sucralfate 1 g PO HS 03/29/23 02/28/24 Unknown History fexofenadine-pseudoephedrine PO 07/16/24 Unknown History Allergies Allergy/AdvReac Type Severity Reaction Status Date / Time No Known Drug Allergies Allergy none Verified 07/16/24 13:39 Review of Systems Review of Systems: CONSTITUTIONAL: Denies fever, chills, or sweats. Reports body aches. EYES: Denies visual changes, redness, or discharge. ENT: Reports rhinorrhea and congestion. Denies sore throat, or otalgia. CARDIOVASCULAR: Denies chest pain, palpitations, or edema. RESPIRATORY: Reports cough. Denies dyspnea. GASTROINTESTINAL: Denies abdominal pain, nausea, vomiting, or diarrhea. GENITOURINARY: Denies dysuria or hematuria. SKIN: Denies rash, itching, or wounds. MUSCULOSKELETAL: Denies back pain, joint pain, or myalgia. NEUROLOGIC: Denies headache, numbness, tingling, or weakness. PSYCH: Denies depression or anxiety. All systems reviewed & are unremarkable except as noted in HPI and below PMFSH Past Medical History Medical History Diabetes TIA (transient ischemic attack) Hyperlipidemia Surgical History Surgical History No pertinent past surgical history Family History Family History Mother Family history non-contributory Father Diabetes mellitus Social History Social History Smoking packs per day: 0.05 Smoking cigarettes per day: 1.0 Years smoked: 20 Smoking pack-years: 1.00 Smoking status: Former smoker Alcohol intake: never Alcohol use details: former social drinker, no alcohol use now Substance use: never Substance use type: does not use Do You Feel Safe in your Home?: Yes Lack of Transportation: YES Lack of Food: Never True Current Housing: I Have Housing Concerned About Future Housing: YES Difficulty Paying Gas/Electric Bills: YES Difficulty Paying for Meds: YES Currently Unemployed: YES Education: High School Diploma/GED Difficulty w/ Childcare or Family Care: No Living arrangements: with family Gender identity (if verbalized by the patient): Male Spiritual care concerns: No Comments At time of signature, I have reviewed and agree with nursing past medical, surgical, social and family history unless otherwise noted. Please see nursing chart for further information. There is no relevant family history pertinent to the presenting complaint. Exam Narrative: GENERAL: Well-appearing, well-nourished, and in no acute distress. EYES: EOMI. No redness or drainage. Conjunctivae normal. ENT: Mucous membranes pink and moist. Nares clear. TMs normal bilaterally. No Throat Erythema or tonsillar exudate, uvula midline. Nasal congestion noted. NECK: Normal AROM. Supple. No lymphadenopathy. CHEST: No respiratory distress. Clear to auscultation. HEART: Regular rate and rhythm. No murmur appreciated. Normal peripheral pulses. ABDOMEN: Soft, nontender, nondistended, normal active bowel sounds. SKIN: Warm, dry, no rash. Capillary refill normal. Normal skin turgor. NEURO: No focal deficits. Alert and oriented x3. Gait steady. PSYCH: Normal affect. No signs of depression or anxiety. Course Course Level of Care: Express Care Visit Vital Signs Vital signs: Vital Signs Temperature 98.3 F 07/16/24 13:28 Pulse Rate 70 07/16/24 13:28 Respiratory Rate 16 07/16/24 13:28 Blood Pressure 150/80 H 07/16/24 13:28 Pulse Oximetry 97 07/16/24 13:28 Oxygen Delivery Room Air 07/16/24 13:28 Temperature 98.3 F 07/16/24 13:28 Pulse Rate 70 07/16/24 13:28 Respiratory Rate 16 07/16/24 13:28 Blood Pressure 150/80 H 07/16/24 13:28 Pulse Oximetry 97 07/16/24 13:28 Oxygen Delivery Room Air 07/16/24 13:28 Reviewed. MDM - URI/Sore Throat MDM Narrative Medical decision making narrative: Discussed physical exam findings. Prednisone and Albuterol given for chest tightness. Augmentin given for sinusitis. Advised supportive measures and signs/symptoms to go to the ER. Pt is appropriate for outpt treatment and follow up. Differential Diagnosis Differential diagnosis: Likely upper respiratory infection Critical Care Time Critical Care Time Critical Care Time: No Discharge Plan Discharge Clinical Impression: Bronchitis Sinusitis Qualifiers: Sinusitis location: frontal Chronicity: acute Recurrence: non-recurrent Qualified Code(s): J01.10 - Acute frontal sinusitis, unspecified Patient Disposition: Home Condition: Stable Instructions: Antibiotic Form, Sinusitis (ED), Acute Bronchitis (ED) Additional Instructions: Take antibiotic as prescribed. Take Steroid as prescribed. Use inhaler as prescribed. Recommend Flonase spray and Zyrtec (or Claritin/Nadege) over the counter Cough syrup may cause drowsiness; avoid driving or take it at night time. Tylenol every 8 hours as needed for pain Symptomatic treatment includes: rest, fluids, and increase humidity of the air at home. Follow up with your primary care provider in 1 week. Go to the ER for worsening symptoms or concerns. Patient Language: English Prescriptions: New amoxicillin-pot clavulanate 875-125 mg tablet 1 tablet PO Q12H 7 Days Qty: 14 0RF albuterol sulfate [Ventolin HFA] 90 mcg/actuation HFA aerosol inhaler 2 puff inhalation QID PRN (Reason: shortness of breath or wheezing) Qty: 6.7 0RF prednisone 20 mg tablet 40 mg PO DAILY 5 Days Qty: 10 0RF No Action fexofenadine-pseudoephedrine [Nadege-D 24 Hour] PO rabeprazole [AcipHex] 20 mg tablet,delayed release (DR/EC) 20 mg PO BID 90 Days Qty: 180 3RF sucralfate tablet 1 g PO HS atorvastatin 40 mg Tablet 40 mg PO HS Qty: 30 0RF Follow-up/Referrals: Quesada,George Wisdom, INSTRUMENT TECHNICIAN APPRENTICE [Primary Care Provider] - Time of Disposition: 14:00
[2024-07-16 13:51] LABS: EDCOVIDSCREEN Negative (Negative); EDINFLUASCREEN Negative (Negative); EDINFLUBSCREEN Negative (Negative)
== END 2024-07-16 14:14 | disposition home or self-care (01) ==
PROVIDERS: PCP Nurse Practitioner Family
DX: J40 Bronchitis, not specified as acute or chronic (principal); J01.10 Acute frontal sinusitis, unspecified; Z20.822 Contact with and (suspected) exposure to COVID-19; Z87.891 Personal history of nicotine dependence; E11.9 Type 2 diabetes mellitus without complications; E78.5 Hyperlipidemia, unspecified; Z86.73 Personal history of transient ischemic attack (TIA), and cerebral infarction without residual deficits
CPT/HCPCS: 87426; 87804; 99213; G0463